=== PATIENT | female | born 1990 ===

== ENCOUNTER 2023-10-01 12:06 | Emergency (ER) | payer MEDICAID, OTHER, SELFPAY ==
--- NOTE | ~2023-10-01 | US_ITS ---
EXAMINATION: US PELVIS COMPLETE CLINICAL INFORMATION: Pelvic pain; the last menstrual period was on 08/12/2023. COMPARISON: None. TECHNIQUE: Transabdominal imaging was performed. FINDINGS: The uterus is of normal size and echogenicity measuring 9.1 x 4.5 x 5.7 cm. The uterus is anteverted and anteflexed. A regular, homogeneous endometrium is identified measuring 1.1 cm. Nabothian cysts are seen within the cervix FIBROIDS: There is 1 fibroid seen. 1. Location: Upper rightward body, myometrial. Size: 3.0 x 2.3 x 2.3 cm. Fibroid characteristics: Heterogeneous echotexture. Both ovaries are of normal size and echogenicity. The right ovary measures 3.4 x 2.3 x 3.4 cm for a volume of 13.9 mL. The right ovary contains a 1.3 x 1.7 x 1.3 cm mildly complex cyst, with internal reticulated contents characteristic for a hemorrhagic cyst. This requires no imaging follow-up. The left ovary measures 3.2 x 1.5 x 1.7 cm for a volume of 4.3 mL. There is no pelvic free fluid. No adnexal mass is seen. There is prominent left adnexal vasculature. US/US pelvic and transvaginal IMPRESSION: 1. A uterine fibroid is seen, as detailed. 2. A right ovarian hemorrhagic cyst is seen, for which no imaging follow-up is recommended. 3. Nabothian cysts are seen within the cervix. 4. There is prominent bilateral adnexal vasculature, which can be associated with pelvic congestion.
[2023-10-01 12:28] VITALS: BP 113/72; PULSE 69; RESP 16; TEMP 37.1; O2SAT 98; BMI 25.6
--- NOTE | 2023-10-01 12:31 | ED_ITS ---
HPI - Abdominal Pain General Chief Complaint: Abdominal Pain Stated Complaint: Stomach Pain Time Seen by Provider: 10/01/23 16:06 Source: patient and senior talent management consultant (Chilean) Mode of arrival: ambulatory Limitations: language barrier (Chilean) History of Present Illness ED Provider: CHANTELL LOPEZ HPI narrative: 33-year-old Chilean speaking female, , with no significant past medical history presents to the ED today for evaluation of suprapubic abdominal pain x5 months. Reports taking tylenol at home with minimal relief. She tells me she's been evaluated numerous times for same at [facility] with unremarkable work up. Does not have an client technical specialist to follow up with. Admits to starting her menstrual period today. LMP previous to this was 08/12/23 and does admit to irregular periods over the last few months. She tells me that she is actively trying to get . She is having intercourse with her significant other and not using protection. Is unsure of STD concern. Admits to negative home test one month ago. She has not on control. She does not have an OBGYN to follow up with. Denies fever, chils, flank pain, nausea, vomiting, diarrhea, constipation, vaginal bleeding, vaginal discharge. Per triage note, patient initially endorsing urinary symptoms. She tells me that she has not had dysuria, increased urinary frequency or urgency, bladder spasming, incontinence or hematuria. Related Data Previous Rx's ?Medication ?Instructions ?Recorded doxycycline monohydrate 100 mg 100 mg PO BID 7 days #13 caps 10/01/23 capsule metronidazole 500 mg tablet 500 mg PO BID 7 days #13 tabs 10/01/23 naproxen 500 mg tablet 500 mg PO Q8-12H PRN pain (scale 10/01/23 score 4-6) #20 tabs Allergies Allergy/AdvReac Type Severity Reaction Status Date / Time No Known Allergies Allergy Verified 10/01/23 12:37 Review of Systems Review of Systems Constitutional: No fever, chills, fatigue, night sweats, weight changes ENT/Mouth: No ear pain, hearing loss, nasal congestion, sinus pain, rhinorrhea, sore throat Eyes: No eye pain, swelling, redness, vision changes, discharge Cardio: No chest pain, palpitations, ROMERO, orthopnea, peripheral edema Pulm: No SOB, cough, sputum, wheezing, dyspnea, hemoptysis GI: No nausea, vomiting, hematemesis, diarrhea, constipation, hematochezia, melena, +suprapubic abdominal pain : No irregular bleeding, dysuria, frequency, urgency, hesitancy, hematuria, flank pain, urinary flow changes, urinary incontinence or retention MSK: No back pain, neck pain, joint pain, myalgias Skin: No lesions, rashes Neuro: No weakness, numbness, paresthesias, LOC, dizziness, headache Psych: No anxiety/panic, depression, SI/HI, AH/VH All other systems reviewed and are negative. [facility] Past Medical History Attestation statement: The following information was validated with the patient. Source: old records reviewed and nursing notes reviewed Social History Social History Alcohol intake: never Smoked in Last 30 Days: No Use of substances other than those prescribed or required for medical reasons: No Advance Directives: No Advance Directives Information Provided: No Patient : No Physical Exam ED Vital Signs: Vital Signs - 24 hr 10/01/23 12:28 10/01/23 16:41 10/01/23 19:21 Temperature 98.8 F 98.0 F 98.0 F Pulse Rate 69 58 62 Respiratory Rate 16 18 16 Blood Pressure 113/72 107/62 130/84 Pulse Oximetry 98 99 100 Oxygen Delivery Method Room Air Room Air Room Air 10/01/23 22:07 Temperature 98.2 F Pulse Rate 59 Respiratory Rate 16 Blood Pressure 117/66 Pulse Oximetry 98 Oxygen Delivery Method Room Air BMI result Body Mass Index 25.6 Vital signs stable Const General: cooperative, healthy appearing, comfortable and no acute distress Orientation/consciousness: patient oriented x3 Limitations: no limitations [facility] Head: Yes normal to inspection, Yes No palpable skull fracture present, Yes normocephalic and Yes atraumatic Eyes General: appearance normal, both eyes and all related structures Conjunctivae: conjunctivae normal Sclerae: sclerae normal Pupils: Equal, round and reactive pupils present Neck Neck: Yes normal visual inspection, Yes full ROM and Yes no lymphadenopathy Resp Effort & Inspection: normal respiratory effort and able to speak in complete sentences Auscultation: clear to auscultation bilaterally Cardio Rate: regular rate Rhythm: regular rhythm Other: Sensitive exam performed with ED ADENIKE David present in room to glass blowing instructor. External genitalia is normal in appearance without lesions, swelling, masses or tenderness. Vaginal canal is pink and moist with purulent discharge. No lesions. Cervix is non-tender without lesions or erosions. There is blood noted to cervical os consistent with current menstrual period. Uterus is anteflexed, non- tender and normal in size. Ovaries are non-tender without palpable masses or enlargement. No cervical motion tenderness on bimanual exam. Skin General skin exam: no rashes or lesions noted Neuro General: patient oriented x3 Cranial nerves: Yes Equal, round and reactive pupils present Course Course Course Narrative: This is an RME performed by Lul Sanchez CNP: Additional HPI, ROS, PE not included below will be deferred to primary provider. Patient is a 33 year old female who presents department for evaluation of mid abdominal pain with onset 5 months ago. Has pain progressively worsened, and has associated fever, dysuria, dizziness, headache, and ?a ball in my privates?. she denies associated chills, nausea, vomiting, diarrhea, constipation. She reports her LMP ended on 08/12/23, states that she took a test 1 month ago and it was negative. Plan: Labs, urinalysis, hCG Reevaluation(s) Reevaluation #1: 1825 -- CBC without leukocytosis or left shift. No anemia. H&H stable. Chemistry without acute electrolyte abnormality requiring intervention. transaminitis without prior to compare to. UA showing trace blood, moderate leukocyte esterase, 3-5 RBCs, 6-10 WBCs, trace bacteria, 3-5 squamous epithelial cells. Findings are consistent with current menstruation. She does not currently complain of urinary symptoms, will await urine culture to treat. She is agreeable with this. 2199-- pelvic exam concerning for STI. I did discuss treatment with patient. She would like to be treated prophylactically today prior to vaginal swab results. She was given a dose of ceftriaxone, doxy and Metro in the ED today. Will send doxy and Metro to pharmacy for treatment. Again, will defer UTI treatment until urine culture results return. pelvic/transvaginal ultrasound showing a single uterine fibroid, a right ovarian hemorrhagic cyst, nabothian cysts within the cervix along with prominent bilateral adnexal vasculature which may be associated with pelvic congestion. As patient's symptoms have been ongoing for 5 months, suspicion for pelvic congestion syndrome. No recommended follow-up for hemorrhagic cyst. She has not anemic. No concern for acute blood loss. Urine test negative. No concern for ectopic . I did discuss all findings with patient. I will be discharging her with referral to [facility] for follow up. Advised to take NSAIDs for pain/ discomfort. Patient has remained stable throughout ED visit today. Discussed worrisome signs and symptoms and when to return to the ED. All questions answered at this time. Patient is agreeable with disposition and stable for discharge. Medical Decision Making Medical Decision Making [facility] Narrative: 33-year-old Chilean speaking female with no significant past medical history presents to the ED today for evaluation of suprapubic abdominal pain x5 months. Vital signs stable. Afebrile. On exam, External genitalia is normal in appearance without lesions, swelling, masses or tenderness. Vaginal canal is pink and moist with purulent discharge. No lesions. Cervix is non-tender without lesions or erosions. There is blood noted to cervical os consistent with current menstrual period. Uterus is anteflexed, non-tender and normal in size. Ovaries are non-tender without palpable masses or enlargement. No cervical motion tenderness on bimanual exam. Abdomen is soft, nondistended, nontender to palpation, no rebound tenderness or guarding, normoactive bowel sounds x4. No CVAT bilaterally. Differential diagnosis includes urinary tract infection, sexually transmitted infection, IUP, ovarian cyst, dysmenorrhea. Lower suspicion for ectopic . Unlikely PID, ovarian cyst rupture, ovarian torsion, bladder or vaginal prolapse. Plan for labs, UA, pelvic/transvaginal ultrasound. Differential Diagnosis Differential Diagnoses: The differential diagnosis associated with the presentation includes As above Admission/Observation Not indicated Lab Data [facility] Lab Attestation statement: I reviewed the patient's lab results. As above 10/01/23 12:57 10/01/23 12:57 Labs: Lab Results 10/01/23 10/01/23 Range/Units 12:57 19:02 WBC 8.2 (4.8-10.8) X10*3/uL RBC 4.40 (4.20-5.50) X10*6/uL Hgb 12.8 (12.0-16.0) g/dl Hct 36.5 L (37.0-47.0) % MCV 83.0 (80.0-98.0) fL MCH 29.1 (27.0-33.0) pg MCHC 35.1 H (31.0-35.0) g/dl RDW 12.5 (11.0-16.0) % Plt Count 296 (160-400) X10*3/uL MPV 10.4 (9.4-12.3) fL Immature Gran % (Auto) 0.2 (0.0-0.4) % Neut % (Auto) 53.9 (45-73) % Lymph % (Auto) 35.3 (20-40) % [place] % (Auto) 6.9 (2-11) % Eos % (Auto) 3.6 (0-4) % Baso % (Auto) 0.1 (0-2) % Lymph # (Auto) 2.9 (1.2-4.9) X10*3/uL [place] # (Auto) 0.6 (0.1-1.2) X10*3/uL Eos # (Auto) 0.3 (0.0-0.4) X10*3/uL Baso # (Auto) 0.0 (0.0-0.2) X10*3/uL Abs Immat Gran (auto) 0.02 (0.00-0.03) X10*3/uL Absolute Neuts (auto) 4.4 (2.0-8.3) x10*3/uL Absolute Nucleated RBC 0.000 (0.0-0.012) X10*3/uL Nucleated RBC % (auto) 0.0 (0.0-0.2) /100WBC Sodium 137 (135-145) mmol/L Potassium 3.7 (3.3-5.1) mmol/L Chloride 106 (96-108) mmol/L Carbon Dioxide 24 (22-29) mmol/L Anion Gap 11 L (12-20) BUN 15 (9-16) mg/dL Creatinine 0.70 (0.5-1.4) mg/dL Estim Creat Clear Calc 89.8 Estimated GFR > 60 Random Glucose 99 (60-115) mg/dL Calcium 9.5 (8.4-10.2) mg/dL Total Bilirubin 0.2 (0.0-1.0) mg/dL AST 35 H (5-31) U/L ALT 61 H (0-31) U/L Alkaline Phosphatase 91 (39-117) U/L Total Protein 7.4 (6.5-8.0) g/dL Albumin 4.1 (3.5-5.0) g/dL Urine Color Yellow Urine Appearance Clear Urine pH 7.0 (5.0-9.0) Ur Specific [place] 1.010 (1.005-1.025) Urine Protein Negative (Neg-Trace) mg/dL Urine Glucose (UA) Negative (Negative) mg/dL Urine Ketones Negative (Negative) mg/dL Urine Blood Trace H (Negative) Urine Nitrite Negative (Negative) Ur Leukocyte Esterase Moderate (2+) H (Negative) Urine RBC 3-5 H (0-2) /HPF Urine WBC 6-10 H (0-5) /HPF Ur Squamous Epith Cells 3-5 (0-2) /HPF Urine Bacteria Trace (None Seen) Hyaline Casts 0-2 (0-2) /LPF Urine Test NEGATIVE (NEGATIVE) Chlam trachomat DNA PCR NOT DETECTED (Not Detect.) N.gonorrhoeae DNA (PCR) NOT DETECTED (Not Detect.) T. vaginalis (PCR) NOT DETECTED (Not Detect) Bact Vaginosis (PCR) NEGATIVE (Negative) C. krusei/glabrata (PCR) NOT DETECTED (Not Detect) Christa group (PCR) NOT DETECTED (Not Detect) Independent Interpretation I performed an independent interpretation of an: Ultrasound Interpretation: Pelvic/transvaginal ultrasound showing right ovarian cyst, agree with radiologist's interpretation. Radiology Impression Discussion of test interpretation with radiology: I have reviewed the radiologist's reading. Radiologist Impression: EXAMINATION: US PELVIS COMPLETE CLINICAL INFORMATION: Pelvic pain; the last menstrual period was on 08/12/2023. COMPARISON: None. TECHNIQUE: Transabdominal imaging was performed. FINDINGS: The uterus is of normal size and echogenicity measuring 9.1 x 4.5 x 5.7 cm. The uterus is anteverted and anteflexed. A regular, homogeneous endometrium is identified measuring 1.1 cm. Nabothian cysts are seen within the cervix FIBROIDS: There is 1 fibroid seen. 1. Location: Upper rightward body, myometrial. Size: 3.0 x 2.3 x 2.3 cm. Fibroid characteristics: Heterogeneous echotexture. Both ovaries are of normal size and echogenicity. The right ovary measures 3.4 x 2.3 x 3.4 cm for a volume of 13.9 mL. The right ovary contains a 1.3 x 1.7 x 1.3 cm mildly complex cyst, with internal reticulated contents characteristic for a hemorrhagic cyst. This requires no imaging follow-up. The left ovary measures 3.2 x 1.5 x 1.7 cm for a volume of 4.3 mL. There is no pelvic free fluid. No adnexal mass is seen. There is prominent left adnexal vasculature. US/US pelvic and transvaginal IMPRESSION: 1. A uterine fibroid is seen, as detailed. 2. A right ovarian hemorrhagic cyst is seen, for which no imaging follow-up is recommended. 3. Nabothian cysts are seen within the cervix. 4. There is prominent bilateral adnexal vasculature, which can be associated with pelvic congestion. Prescription Management I considered prescription management with: Pain Medication (naproxen) and Antibiotic (Doxycycline, metronidazole) Social Determinants Patient?s care significantly limited by Social Determinants of Health including: Other Social Determinant of Health Medications Administered Discontinued Medications Generic Name Dose Route Start Last Admin Trade Name Freq PRN Reason Stop Dose Admin Ceftriaxone Sodium 500 mg/ 0 mg 10/01/23 18:46 10/01/23 19:15 Lidocaine HCl 1 ml IM 10/01/23 18:47 350 kit ONCE ONE Administration Doxycycline Monohydrate 100 mg 10/01/23 18:46 10/01/23 19:14 Doxycycline Monohydrate 100 Mg Capsule PO 10/01/23 18:47 100 mg ONCE ONE Administration Ketorolac Tromethamine 30 mg 10/01/23 18:16 10/01/23 18:36 Ketorolac Tromethamine 30 Mg/Ml Vial IM 10/01/23 18:17 30 mg ONCE ONE Administration Metronidazole 500 mg 10/01/23 18:46 10/01/23 19:14 Metronidazole 500 Mg Tablet PO 10/01/23 18:47 500 mg ONCE ONE Administration Critical Care Time Critical Care Time Critical Care Time: No Discharge Plan Discharge Clinical Impression: Female pelvic congestion syndrome, Hemorrhagic cyst of right ovary, Uterine fibroid, Nabothian cyst Patient Disposition: Home, Self-Care Instructions: Ovarian Cyst (ED) Additional Instructions: Your labs today are reassuring. Your urine shows blood consistent with your current menstrual period. The ultrasound of your pelvis shows: US pelvic and transvaginal IMPRESSION: 1. A uterine fibroid is seen, as detailed. 2. A right ovarian hemorrhagic cyst is seen, for which no imaging follow-up is recommended. 3. Nabothian cysts are seen within the cervix. 4. There is prominent bilateral adnexal vasculature, which can be associated with pelvic congestion. As discussed, your pain is consistent with pelvic congestion syndrome. Please follow up with pile driving setter regarding these findings. You have been given a referral. Call them Wednesday morning to schedule an appointment. Additionally, swabs were sent to check for sexually transmitted infections and you will be called in a few days with any positive results. After discussion, you opted to be treated prophylactially. You were given a dose of ceftriaxone in the ED. Metronidazole as an antibiotic that has been sent to your pharmacy. Take this as prescribed. Doxycycline is antibiotic that has been sent to your pharmacy. Take this as prescribed. Return with new or worsening symptoms. In the case of an emergency call 911. Prescriptions: New naproxen 500 mg tablet 500 mg PO Q8-12H PRN (Reason: pain (scale score 4-6)) Qty: 20 0RF doxycycline monohydrate 100 mg capsule 100 mg PO BID 7 Days Qty: 13 0RF metronidazole 500 mg tablet 500 mg PO BID 7 Days Qty: 13 0RF Referrals: Jaya Watts MD [Physician] - Interventions: ED Discharge Assessment Last Done: 10/01/23 22:07 Discharge Date/Time: 10/01/23 22:10 Print Language: Chilean
--- NOTE | 2023-10-01 12:41 | ECG_ITS ---
Test Reason : DIZZINESS Blood Pressure : / mmHG Vent. Rate : 059 BPM Atrial Rate : 059 BPM P-R Int : 130 ms QRS Dur : 076 ms QT Int : 434 ms P-R-T Axes : 065 003 024 degrees QTc Int : 429 ms Sinus bradycardia Otherwise normal ECG No previous ECGs available Referred By: Genna Sanchez Electronically Signed By:JOSIAS SANCHEZ
[2023-10-01 13:07] LABS: MANUAL DIFF FLAG NO
[2023-10-01 13:08] LABS: Basophils Percent Auto 0.1 % (0-2); Eosinophils Absolute Auto 0.3 X10*3/uL (0.0-0.4); Eosinophils Percent Auto 3.6 % (0-4); Hematocrit 36.5 % (37.0-47.0); Hemoglobin 12.8 g/dl (12.0-16.0); Imm Gran Abs Auto 0.02 X10*3/uL (0.00-0.03); Imm Gran Pct Auto 0.2 % (0.0-0.4); Lymphocytes Absolute Auto 2.9 X10*3/uL (1.2-4.9); Lymphocytes Percent Auto 35.3 % (20-40); Mean Corpuscular HGB Conc 35.1 g/dl (31.0-35.0); Mean Corpuscular Hemoglobin 29.1 pg (27.0-33.0); Mean Platelet Volume 10.4 fL (9.4-12.3); Monocytes Absolute Auto 0.6 X10*3/uL (0.1-1.2); Monocytes Percent Auto 6.9 % (2-11); Neutrophils Absolute Auto 4.4 x10*3/uL (2.0-8.3); Neutrophils Percent Auto 53.9 % (45-73); Platelet Count 296 X10*3/uL (160-400); Red Cell Distribution Width 12.5 % (11.0-16.0); White Blood Count 8.2 X10*3/uL (4.8-10.8)
[2023-10-01 13:18] LABS: Appearance Urine Clear; Color Urine Yellow; Glucose Urine UA Negative (Negative); Leukocyte Esterase Urine Moderate (2+) (Negative); Nitrite Urine Negative (Negative); UMIC TRIGGER UACC YES; Urine Blood Trace (Negative); Urine Ketones Negative (Negative); Urine Protein Negative (Neg-Trace)
[2023-10-01 13:19] LABS: UPreg QC Valid YES; Urine Pregnancy NEGATIVE (NEGATIVE)
[2023-10-01 13:23] LABS: Bacteria Urine Trace (None Seen); Hyaline Casts Urine 0-2 /LPF (0-2); UACC Culture Trigger YES
[2023-10-01 13:29] LABS: Alanine Aminotransferase 61 U/L (0-31); Albumin Level 4.1 g/dL (3.5-5.0); Alkaline Phosphatase 91 U/L (39-117); Anion Gap 11 (12-20); Aspartate Amino Transferase 35 U/L (5-31); Bilirubin Total 0.2 mg/dL (0.0-1.0); Blood Urea Nitrogen 15 mg/dL (9-16); Calcium 9.5 mg/dL (8.4-10.2); Carbon Dioxide 24 mmol/L (22-29); Chloride 106 mmol/L (96-108); Creatinine Clr Calc Pharmacy 89.8; Estimated Glomerular Filt Rate > 60; Glucose Random 99 mg/dL (60-115); Potassium 3.7 mmol/L (3.3-5.1); Sodium 137 mmol/L (135-145); Total Protein 7.4 g/dL (6.5-8.0)
--- OUTSIDE RECORDS SUMMARY | 2023-10-01 16:21 | XMS_ITS | Continuity of Care Document ---
Author Organization [facility] Address [address] [place] [address]- Care Team Providers Care Tax Commissioner Name Role Phone Not on Staff, PCP Primary Care Physician Unavail able Encounter [facility] [place] [facility] Date(s): 12/29/22 - 01/28/23 [facility]/[place] [address]- [place] Allergies, Adverse Reactions, Alerts No Known Allergies Medications albendazole 200 mg oral tablet 2 tablet = 400 mg, By Mouth, Once, # 2 tablet, 0 Refills, Soft Stop, 09/02/22 11:57:00 EDT, Tablet,[facility], Partial fill upon patient request if the prescription is for a schedule II opioid drug., 53.09, kg, 09/02/22 11:26:00 E... Start Date: 09/02/22 Status: Ordered cetirizine 10 mg oral tablet 1 tablet = 10 mg, By Mouth, Daily, PRN for allergy symptoms, # 30 tablet, 1 Refills, Maintenance, 09/02/22 11:59:00 EDT, Tablet, [facility], Partial fill upon patient request if the prescription is for a schedule II opioid drug., 5... Start Date: 09/02/22 Stop Date: 11/01/22 Status: Ordered ivermectin 3 mg oral tablet 4 tablet = 12 mg, By Mouth, Daily, # 8 tablet, 0 Refills, Maintenance, 09/02/22 11:57:00 EDT, [facility], Partial fill upon patient request if the prescription is for a schedule II opioid drug., 53.09, kg, 09/02/22 11:26:00 EDTDr... Start Date: 09/02/22 Stop Date: 09/04/22 Status: Ordered Lubricant Eye Drops ophthalmic solution 1 drops, Eyes, Both, 2 times a day, PRN for dry eyes, cape verdean, # 30 mL, 11 Refills, Maintenance, 12/01/22 19:04:00 EDT, Solution, [facility], Partial fill upon patient request if the prescription is for a schedule II opioid drug.,... Start Date: 12/01/22 Status: Ordered omeprazole 20 mg oral enteric coated capsule 1 capsule = 20 mg, By Mouth, 2 times a day, # 28 capsule, 0 Refills, Maintenance, 09/15/22 15:19:00EDT, EC Capsule, [facility], Partial fill upon patient request if the prescription is for a schedule II opioid drug., 53.09, kg, 05... Start Date: 09/15/22 Stop Date: 09/29/22 Status: Ordered wrist splint for carpal tunnel wrist splint for carpal tunnel, See Instructions, # 1 each, Refills 0, Tot. Refills 0, Maintenance,dx: carpal tunnel right G56. 01 YOSSI 12 months, 12/01/22 19:04:00 EDT, Supply Start Date: 12/01/22 Status: Ordered Xulane 150 mcg-35 mcg/24 hr transdermal film, extended release See Instructions, apply a new patch weekly for 3 weeks, remove for 1 week, then repeat cycle, # 9 patch, 3 Refills, Maintenance, 12/01/22 19:02:00 EDT, [facility], Partial fill upon patient request if the prescription is for a sche... Start Date: 12/01/22 Status: Ordered Social History Social History Type Response Sex Female Patient Care team information Care Team Personnel Name: Not on Staff, PCP Position: S Physician (General Medicine) Member Role: PCP Care Team Related Persons Name: NANY DUQUE
--- OUTSIDE RECORDS SUMMARY | 2023-10-01 16:21 | XMS_ITS | Continuity of Care Document ---
Author Organization [facility] Address [address] [place] [id number]- Care Team Providers Care Package Pick Up Name Role Phone Wilberto CARUSO, Tracey Freeman Primary Care Physici an [id number] Date[facility]s): 07/05/23 - 08/04/23 [facility]/[address] [address]- Allergies, Adverse Reactions, Alerts No Known Allergies Medications cetirizine 10 mg oral tablet 1 tablet = 10 mg, By Mouth, Daily, PRN for allergy symptoms, # 30 tablet, 1 Refills, Maintenance, 09/02/22 11:59:00 EDT, Tablet, [facility], Partial fill upon patient request if the prescription is for a schedule II opioid drug., 5... Start Date: 09/02/22 Stop Date: 11/01/22 Status: Ordered Lubricant Eye Drops ophthalmic solution 1 drops, Eyes, Both, 2 times a day, PRN for dry eyes, marshallese, # 30 mL, 11 Refills, Maintenance, 12/01/22 19:04:00 EDT, Solution, [facility], Partial fill upon patient request if the prescription is for a schedule II opioid drug.,... Start Date: 12/01/22 Status: Ordered Multivitamins with Folic Acid 0.4 mg oral tablet 1 tablet, By Mouth, Daily, # 90 tablet, 3 Refills, Maintenance, 08/03/23 10:01:00 EDT, [facility], Partial fill upon patient request if the prescription is for a schedule II opioid drug., 1 tablet By Mouth Daily, 145.2, cm, 2... Start Date: 08/03/23 Status: Ordered Xulane 150 mcg-35 mcg/24 hr transdermal film, extended release See Instructions, apply a new patch weekly for 3 weeks, remove for 1 week, then repeat cycle, # 9 patch, 3 Refills, Maintenance, 12/01/22 19:02:00 EDT, [facility] [place], Partial fill upon patient request if the prescription is for a sche... Start Date: 12/01/22 Status: Ordered Social History Social History Type Response Smoking Status Never (less than 100 in lifetime) entered on: 03/17/23 Sex Female Patient Care team information Care Team Personnel Name: Wilberto CARUSO, Tracey Freeman Position: [facility] PC[facility] Associate Professional Member Role: PCP Address: Address: [address] [place] [address]- Care Team Related Persons Name: NANY DUQUE
--- OUTSIDE RECORDS SUMMARY | 2023-10-01 16:21 | XMS_ITS | Continuity of Care Document ---
Author Organization [facility] Address [address] [place] [id number]- Care Team Providers Care Computer Clerk Name Role Phone Wilberto CARUSO, Tracey Freeman Primary Care Physici an [id number] Date[facility]s): 06/17/23 - 07/17/23 [facility]/[address] [address]- Allergies, Adverse Reactions, Alerts No Known Allergies Medications cetirizine 10 mg oral tablet 1 tablet = 10 mg, By Mouth, Daily, PRN for allergy symptoms, # 30 tablet, 1 Refills, Maintenance, 09/02/22 11:59:00 EDT, Tablet, [facility], Partial fill upon patient request if the prescription is for a schedule II opioid drug., 5... Start Date: 09/02/22 Stop Date: 11/01/22 Status: Ordered Lubricant Eye Drops ophthalmic solution 1 drops, Eyes, Both, 2 times a day, PRN for dry eyes, macedonian, # 30 mL, 11 Refills, Maintenance, 12/01/22 19:04:00 EDT, Solution, [facility], Partial fill upon patient request if the prescription is for a schedule II opioid drug.,... Start Date: 12/01/22 Status: Ordered Xulane 150 mcg-35 mcg/24 hr transdermal film, extended release See Instructions, apply a new patch weekly for 3 weeks, remove for 1 week, then repeat cycle, # 9 patch, 3 Refills, Maintenance, 12/01/22 19:02:00 EDT, [facility], Partial fill upon patient request if the prescription is for a sche... Start Date: 12/01/22 Status: Ordered Social History Social History Type Response Smoking Status Never (less than 100 in lifetime) entered on: 03/17/23 Sex Female Patient Care team information Care Team Personnel Name: Wilberto CARUSO, Tracey Freeman Position: [facility] PCO Associate Professional Member Role: PCP Address: Address: [address] [place] [address] Care Team Related Persons Name: NANY DUQUE
--- OUTSIDE RECORDS SUMMARY | 2023-10-01 16:21 | XMS_ITS | Continuity of Care Document ---
Author Organization [facility] Address [address] [place] [address]- Care Team Providers Care Manager Employment Name Role Phone Wilberto CARUSO, Tracey Freeman Primary Care Physici an Encounter [facility] [id number] Date(s): 06/30/23 - 07/30/23 [facility]/[address] [address]- Allergies, Adverse Reactions, Alerts No Known Allergies Medications cetirizine 10 mg oral tablet 1 tablet = 10 mg, By Mouth, Daily, PRN for allergy symptoms, # 30 tablet, 1 Refills, Maintenance, 09/02/22 11:59:00 EDT, Tablet, [facility], Partial fill upon patient request if the prescription is for a schedule II opioid drug., 5... Start Date: 09/02/22 Stop Date: 11/01/22 Status: Ordered Lubricant Eye Drops ophthalmic solution 1 drops, Eyes, Both, 2 times a day, PRN for dry eyes, estonian, # 30 mL, 11 Refills, Maintenance, 12/01/22 19:04:00 EDT, Solution, [facility], Partial fill upon patient request if the prescription is for a schedule II opioid drug.,... Start Date: 12/01/22 Status: Ordered Xulane 150 mcg-35 mcg/24 hr transdermal film, extended release See Instructions, apply a new patch weekly for 3 weeks, remove for 1 week, then repeat cycle, # 9 patch, 3 Refills, Maintenance, 12/01/22 19:02:00 EDT, [facility], Partial fill upon patient request if the prescription is for a sche... Start Date: 12/01/22 Status: Ordered Social History Social History Type Response Smoking Status Never (less than 100 in lifetime) entered on: 03/17/23 Sex Female Patient Care team information Care Team Personnel Name: Wilberto CARUSO, Tracey Freeman Position: [facility] PCO Associate Professional Member Role: PCP Address: Address: [address] [place] [address] Care Team Related Persons Name: NANY DUQUE
--- OUTSIDE RECORDS SUMMARY | 2023-10-01 16:21 | XMS_ITS | Continuity of Care Document ---
Author Organization [facility] Address [address] [place] [address]- Care Team Providers Care Director Of Psychiatry Name Role Phone Not on Staff, PCP Primary Care Physician Unavail able Encounter [facility] Date(s): 03/26/23 - 04/25/23 [facility] [address]- Allergies, Adverse Reactions, Alerts No Known Allergies Medications albendazole 200 mg oral tablet 2 tablet = 400 mg, By Mouth, Once, # 2 tablet, 0 Refills, Soft Stop, 09/02/22 11:57:00 EDT, Tablet,[facility], Partial fill upon patient request if the prescription is for a schedule II opioid drug., 53.09, kg, 09/02/22 11:26:00 E... Start Date: 09/02/22 Status: Ordered cetirizine 10 mg oral tablet 1 tablet = 10 mg, By Mouth, Daily, PRN for allergy symptoms, # 30 tablet, 1 Refills, Maintenance, 09/02/22 11:59:00 EDT, Tablet, [facility], Partial fill upon patient request if the prescription is for a schedule II opioid drug., 5... Start Date: 09/02/22 Stop Date: 11/01/22 Status: Ordered ivermectin 3 mg oral tablet 4 tablet = 12 mg, By Mouth, Daily, # 8 tablet, 0 Refills, Maintenance, 09/02/22 11:57:00 EDT, [facility], Partial fill upon patient request if the prescription is for a schedule II opioid drug., 53.09, kg, 09/02/22 11:26:00 EDTDr... Start Date: 09/02/22 Stop Date: 09/04/22 Status: Ordered Lubricant Eye Drops ophthalmic solution 1 drops, Eyes, Both, 2 times a day, PRN for dry eyes, bhutanese, # 30 mL, 11 Refills, Maintenance, 12/01/22 19:04:00 EDT, Solution, [facility], Partial fill upon patient request if the prescription is for a schedule II opioid drug.,... Start Date: 12/01/22 Status: Ordered omeprazole 20 mg oral enteric coated capsule 1 capsule = 20 mg, By Mouth, 2 times a day, # 28 capsule, 0 Refills, Maintenance, 09/15/22 15:19:00EDT, EC Capsule, [facility], Partial fill upon patient request if [...] patch, 3 Refills, Maintenance, 12/01/22 19:02:00 EDT, [facility], Partial fill upon patient request if [...]
--- OUTSIDE RECORDS SUMMARY | 2023-10-01 16:21 | XMS_ITS | Continuity of Care Document ---
Author Organization [facility] Address [address] [place] [address]- Care Team Providers Care Cigar Packer And Picker Name Role Phone Wilberto CARUSO, Tracey Freeman Primary Care Physici an [place] [facility] [place] 09/01/23 - 09/01/[address] [address]- Discharge Disposition: A-D/C Home Attending Physician: Luis Miguel Dia MD Admitting Physician: Luis Miguel Dia MD Referring Physician: Not on Staff, Referring MD Allergies, Adverse Reactions, Alerts No Known Allergies Medications cetirizine 10 mg oral tablet 1 tablet = 10 mg, By Mouth, Daily, PRN for allergy symptoms, # 30 tablet, 1 Refills, Maintenance, 09/02/22 11:59:00 EDT, Tablet, [facility], Partial fill upon patient request if the prescription is for a schedule II opioid drug., 5... Start Date: 09/02/22 Stop Date: 11/01/22 Status: Ordered Lubricant Eye Drops ophthalmic solution 1 drops, Eyes, Both, 2 times a day, PRN for dry eyes, persian, # 30 mL, 11 Refills, Maintenance, 12/01/22 19:04:00 EDT, Solution, [facility], Partial fill upon patient request if the prescription is for a schedule II opioid drug.,... Start Date: 12/01/22 Status: Ordered Multivitamins with Folic Acid 0.4 mg oral tablet 1 tablet, By Mouth, Daily, # 90 tablet, 3 Refills, Maintenance, 08/03/23 10:01:00 EDT, [facility], Partial fill upon patient request if [...] patch, 3 Refills, Maintenance, 12/01/22 19:02:00 EDT, [facility], Partial fill upon patient request if the prescription is for a sche... Start Date: 12/01/22 Status: Ordered Results Orders for Microbiology Reports Name Date Wet Prep (WET PREP) 09/01/23 Microbiology Reports TEST:Wet Prep STATUS:Auth (Verified) BODY SITE: SOURCE:VAGINA COLLECTED DATE/TIME:09/01/23 10:44 AM Wet Prep SPECIMEN DESCRIPTION : VAGINAL SPECIMEN SWAB SPECIAL REQUESTS : NONE DIRECT EXAM : 4+ WHITE BLOOD CELLS NO TRICHOMONAS,YEAST,OR CLUE CELLS OBSERVED REPORT STATUS : FINAL 09/01/2023 Radiology Reports * Exam Date Time Procedure Performing Provider Status 09/01/23 12:20 PM US Pelvic Doppler Comp Noemi Jones; Auth (Verified) Notes: (US Pelvic Doppler Comp) Reason For Exam: Pelvic Pain;Other: RESULT: US Pelvic Doppler Comp US Pelvic Transabdominal, US Pelvic Transvaginal, US Pelvic Doppler Comp Hx of Present Illness: pt c o lower abd pain x 3 months. was evaled at clinic, meds rx relieved symptoms, pain returned yesterday. denies any associated symptoms including dysuria, changes in urine, vag dc, fevers, n v, constipation. also c o lower back pain; Reason: Other:; Pelvic Pain; Clinical Question(s): TOA; Order Comment: US Pelvic Non-Ob Comp Prep COMPARISON: 07/05/2023. TECHNIQUE: Transabdominal and transvaginal pelvic ultrasound with grayscale, color Doppler, and spectral Doppler analysis. FINDINGS: UTERUS: Size: 8.6 x 4.1 x 4.9 cm, volume 89.7 cc. Endometrial thickness: 0.4 cm. Morphology: Normal configuration and echotexture. RIGHT OVARY: Size: 4.2 x 2.1 x 2.2 cm, volume 10.1 cc. Morphology: Normal echotexture. Multiple small peripheral follicles. No pathologic cysts or mass. Normal arterial and venous waveforms. LEFT OVARY: Size: 3.7 x 2.3 x 2.7 cm, volume 12.2 cc. Morphology: Normal echotexture. Multiple small peripheral follicles. No pathologic cysts or mass. Normal arterial and venous waveforms. ADNEXA: Normal. No adnexal masses or fluid collections. Mild prominence of left adnexal vasculature. IMPRESSION: No evidence of abscess, torsion, or other acute abnormality of the pelvis. WSN: [id number] Ordering Physician: Gayatri Culp Dictated By: Natalia Flores MD Dictated Date/Time: 09/01/23 12:45 p Reviewed By: Natalia Flores MD Signed By: Natalia Flores MD Signed Date/Time: 09/01/23 12:45 pm Transcribed By: ENA Transcribed Date/Time: 09/01/23 12:37 pm * Exam Date Time Procedure Performing Provider Status 09/01/23 12:20 PM US Pelvic Transvaginal Noemi Jones ee; Auth (Verified) Notes: (US Pelvic Transvaginal) Reason For Exam: Pelvic Pain;Other: RESULT: US Pelvic Transvaginal US Pelvic Transabdominal, US Pelvic Transvaginal, US Pelvic Doppler Comp Hx of Present Illness: pt c o lower abd pain x 3 months. was evaled at clinic, meds rx relieved symptoms, pain returned yesterday. denies any associated symptoms including dysuria, changes in urine, vag dc, fevers, n v, constipation. also c o lower back pain; Reason: Other:; Pelvic Pain; Clinical Question(s): TOA; Order Comment: US Pelvic Non-Ob Comp Prep COMPARISON: 07/05/2023. TECHNIQUE: Transabdominal and transvaginal pelvic ultrasound with grayscale, color Doppler, and spectral Doppler analysis. FINDINGS: UTERUS: Size: 8.6 x 4.1 x 4.9 cm, volume 89.7 cc. Endometrial thickness: 0.4 cm. Morphology: Normal configuration and echotexture. RIGHT OVARY: Size: 4.2 x 2.1 x 2.2 cm, volume 10.1 cc. Morphology: Normal echotexture. Multiple small peripheral follicles. No pathologic cysts or mass. Normal arterial and venous waveforms. LEFT OVARY: Size: 3.7 x 2.3 x 2.7 cm, volume 12.2 cc. Morphology: Normal echotexture. Multiple small peripheral follicles. No pathologic cysts or mass. Normal arterial and venous waveforms. ADNEXA: Normal. No adnexal masses or fluid collections. Mild prominence of left adnexal vasculature. IMPRESSION: No evidence of abscess, torsion, or other acute abnormality of the pelvis. WSN: [id number] Ordering Physician: Gayatri Culp Dictated By: Natalia Flores MD Dictated Date/Time: 09/01/23 12:45 p Reviewed By: Natalia Flores MD Signed By: Natalia Flores MD Signed Date/Time: 09/01/23 12:45 pm Transcribed By: ENA Transcribed Date/Time: 09/01/23 12:37 pm * Exam Date Time Procedure Performing Provider Status 09/01/23 12:20 PM US Pelvic Transabdominal Kia Jones; Auth (Verified) Notes: (US Pelvic Transabdominal) Reason For Exam: Pelvic Pain;Other: RESULT: US Pelvic Transabdominal US Pelvic Transabdominal, US Pelvic Transvaginal, US Pelvic Doppler Comp Hx of Present Illness: pt c o lower abd pain x 3 months. was evaled at clinic, meds rx relieved symptoms, pain returned yesterday. denies any associated symptoms including dysuria, changes in urine, vag dc, fevers, n v, constipation. also c o lower back pain; Reason: Other:; Pelvic Pain; Clinical Question(s): TOA; Order Comment: US Pelvic Non-Ob Comp Prep COMPARISON: 07/05/2023. TECHNIQUE: Transabdominal and transvaginal pelvic ultrasound with grayscale, color Doppler, and spectral Doppler analysis. FINDINGS: UTERUS: Size: 8.6 x 4.1 x 4.9 cm, volume 89.7 cc. Endometrial thickness: 0.4 cm. Morphology: Normal configuration and echotexture. RIGHT OVARY: Size: 4.2 x 2.1 x 2.2 cm, volume 10.1 cc. Morphology: Normal echotexture. Multiple small peripheral follicles. No pathologic cysts or mass. Normal arterial and venous waveforms. LEFT OVARY: Size: 3.7 x 2.3 x 2.7 cm, volume 12.2 cc. Morphology: Normal echotexture. Multiple small peripheral follicles. No pathologic cysts or mass. Normal arterial and venous waveforms. ADNEXA: Normal. No adnexal masses or fluid collections. Mild prominence of left adnexal vasculature. IMPRESSION: No evidence of abscess, torsion, or other acute abnormality of the pelvis. WSN: [id number] Ordering Physician: Gayatri Culp Dictated By: Natalia Flores MD Dictated Date/Time: 09/01/23 12:45 p Reviewed By: Natalia Flores MD Signed By: Natalia Flores MD Signed Date/Time: 09/01/23 12:45 pm Transcribed By: ENA Transcribed Date/Time: 09/01/23 12:37 pm * Exam Date Time Procedure Performing Provider Status 09/01/23 11:[address] Abd/Pelvis W/ IV Contrast Only Leona Brenner; Auth (Verified) Notes: (CT Abd/Pelvis W/ IV Contrast Only) Reason For Exam: lower abd pain;Other: RESULT: CT Abd/Pelvis W/ IV Contrast Only CT Abd/Pelvis W/ IV Contrast Only Hx of Present Illness: pt c o lower abd pain x 3 months. Was evaluated at clinic, meds rx relieved symptoms, pain returned yesterday. Denies any associated symptoms including dysuria, changes in urine, vag dc, fevers, n v, constipation. Also c o lower back pain; Reason: Other:; lower abd pain; Clinical Question(s): Other:; infection; Order Comment: TECHNIQUE: Spiral CT through the abdomen and pelvis with IV contrast formatted in 3 planes. 100 cc of Omnipaque 300 was administered intravenously. This study was performed without oral contrast. Weight-based protocol using automatic tube modulation was used to optimize exposure parameters. CTDIvol Body: 6.56 mGy, DLP Body: 333 mGy*cm. COMPARISON: No pertinent prior study available for comparison.. FINDINGS: Title Agent View Findings, Lines and Tubes: None. Visualized Chest: Lung bases are clear. No pleural effusion. The heart is normal in size. No pericardial effusion. Diaphragm: Normal. Liver: Diffuse low attenuation of the hepatic parenchyma compatible steatosis. Ill-defined area of high attenuation in the left hepatic lobe abutting the malena hepatis measuring 1.6 x 1.5 cm (41/601). Gallbladder: No CT evidence of gallbladder pathology. Bile ducts: No biliary ductal dilation. Spleen: Normal. Accessory splenic tissue is incidentally noted. Pancreas: Normal. Adrenal glands: Normal. Kidneys and ureters: No hydronephrosis, stones, or suspicious masses. Bladder: Normal. Reproductive organs: Unremarkable. Stomach, small bowel, and large bowel: Stomach, small bowel and large bowel are normal in caliber. No evidence of bowel obstruction. No acute inflammatory process of the bowel. Appendix: Normal. Peritoneum and retroperitoneum: No ascites or pneumoperitoneum. No omental or mesenteric lesions. Lymph nodes: No enlarged lymph nodes. Blood vessels: Normal. No aneurysm. No evidence of venous thrombosis. Abdominal and pelvic wall: Unremarkable. Bones: No acute abnormality. IMPRESSION: 1. No acute process in the abdomen or pelvis. 2. Hepatic steatosis 3. Focal area of high attenuation/enhancement in the left hepatic lobe abutting the malena hepatis measuring up to 1.6 cm most likely represents an area of focal fat sparing. Differential considerations could include an adenoma or FNH. This could be correlated with ultrasound or follow-up nonemergent MRI abdomen with and without contrast WSN: [id number] Ordering Physician: Gayatri Culp Dictated By: Boris Salazar MD Dictated Date/Time: 09/01/23 12:09 p Reviewed By: Boris Salazar MD Signed By: Boris Salazar MD Signed Date/Time: 09/01/23 12:09 pm Transcribed By: ENA Transcribed Date/Time: 09/01/23 11:53 am Vital Signs Most recent to oldest [Reference Range]: 1 2 3 Height 146 cm (09/01/23 2:32 PM) 146 cm (09/01/23 9:46 AM) 146 cm (09/01/23 9:27 AM) Weight 59 kg (09/01/23 9:46 AM) 59 kg (09/01/23 9:27 AM) Oxygen Saturation [94-100 %] 100 % (09/01/23 2:32 PM) 100 % (09/01/23 9:27 AM) Pulse Rate [55-90 bpm] 54 bpm *L* (09/01/23 2:32 PM) 57 bpm (09/01/23 9:27 AM) Body Mass Index [18.5-24.99 kg/m2] 27.68 kg/m2 *H* (09/01/23 9:27 AM) Blood Pressure [90-138/55-84 mm Hg] 109/69mm Hg (09/01/23 2:32 PM) 134/86mm Hg (09/01/23 9:27 AM) Respiratory Rate [16-30 br/min] 16 br/min (09/01/23 2:32 PM) 18 br/min (09/01/23 9:27 AM) Temperature [96.8-100.4 DegF] 98.4 DegF (09/01/23 2:32 PM) 98.4 DegF (09/01/23 9:27 AM) Mode of Delivery (Oxygen) Room air (09/01/23 2:32 PM) Room air (09/01/23 9:27 AM) Blood pressure sites Arm, left (09/01/23 2:32 PM) Arm, right (09/01/23 9:27 AM) Temperature Route Oral (09/01/23 2:32 PM) Oral (09/01/23 9:27 AM) Dry Weight 59 kg (09/01/23 9:46 AM) 59 kg (09/01/23 9:27 AM) Weight Obtained Via Patient/family state d (09/01/23 9:27 AM) Dry Weight Obtained Via Patient/family s tated (09/01/23 9:27 AM) Social History Social History Type Response Smoking Status Never (less than 100 in lifetime) entered on: 03/17/23 Sex Female Note * Gayatri Nunez M: PERFORM Event Display: Patient Education Leaflets Authored Date: [id number] Abdominal Pain, Unknown Cause (Adult) ?? [id number] Causas desconocidas del dolor abdominal en adultos Se desconoce la causa exacta del dolor en el vientre (abdomen). Por el momento, las pruebas y los ex??menes no indican bonny causa grave. Ramiro eso no significa que no haya que preocuparse. Todas las personas quieren conocer la causa exacta del problema. Ramiro a veces no hay bonny causa nancy del dolor abdominal, y esto podr??a ser algo burks. Podr??a sentirse mejor al tratar los s??ntomas.?? Por el momento, brock afecci??n no parece ser grave. Sin embargo, a veces los signos de un problema grave pueden tardar m??s en aparecer. Por lo tanto, es importante que vigile cualquier s??ntoma nuevo,dificultad o empeoramiento de brock afecci??n. En los d??as siguientes, el dolor abdominal puede aparecer y desaparecer. O puede ser clau. Las n??useas y los v??mitos son otros s??ntomas habituales. A veces, puede ser dif??cil reconocer que tiene n??useas. Podr??a sentirse mal y no relacionarlo con bonny sensaci??n de n??useas. El dolor podr??a estar acompa??ado de estre??imiento, diarrea y fiebre. El dolor puede continuar ankita varios d??as, incluso cuando se trata correctamente. Seg??n la evoluci??n del cuadro, a veces la causa puede determinarse y puede requerir m??s o diferentes tratamientos. Tambi??n puede necesitar otras evaluaciones, medicamentos o pruebas. Cuidados en el hogar Brock proveedor de atenci??n m??dica puede recetarle medicamentos para el dolor, los s??ntomas o bonny infecci??n. ??Siga las instrucciones del proveedor de atenci??n m??dica para avtar estos medicamentos. Cuidados generales ??? Descanse todo lo que pueda hasta el pr??ximo control. No tanya actividades que requieran mucho esfuerzo. ??? Evite todo lo que pueda causar los s??ntomas. [place] puede incluir no avtar medicamentos,a menos que se lo haya indicado brock proveedor de atenci??n m??dica. O no comer determinados alimentos ni hacer determinadas actividades. ??? Trate de encontrar posiciones que alivien el malestar. Bonny almohada jose angel??a colocada sobre el abdomen puede aliviar el dolor. ??? El calor de, por ejemplo, bonny almohadilla t??rmica en el abdomen puede ayudar, ramiro tenga cuidado de no quemarse. Alimentaci??n ??? No se obligue a comer, especialmente si tiene c??licos, v??mitos o diarrea. ??? Es importante que tome agua para no deshidratarse. Tambi??n puede ser burks beber sopas. Las bebidas deportivas tambi??n pueden ayudar, en especial si no son muy ??cidas. No tome bebidas con az??car yaque podr??a hacer que empeore. Neha cantidades jose angel??as de l??quidos. No neha r??pido. ??? El consumo de cafe??na a veces puede empeorar el dolor y los c??licos. ??? No ingiera productos l??cteos sitiene v??mitos o diarrea. ??? No ingiera bonny gran cantidad de comida de bonny miguel vez. Coma varias porciones jose angel??as a lo kindra del d??a, en vez de 2??o 3??comidas grandes diarias. Espere unos minutos entre bocados. ??? Coma alimentos con poca fibra (esto se llama dieta baja en residuos). Los alimentos permitidos incluyen panes con harina refinada, arroz whitehead, jugos de frutas y verduras sin pulpa y maxine de res tiernas. Estos alimentos pasan con mayor facilidad por el intestino. ??? Evite los alimentos de granos integrales, las frutas y verduras enteras, las maxine de res, las semillas y los thuy secos, los alimentos fritos o grasosos, los productos l??cteos, el alcohol y los alimentos picantes hasta que los s??ntomas desaparezcan. ?? Seguimiento Tanya el seguimiento con brock proveedor de atenci??n m??dica o seg??n las indicaciones si el dolor no comienza a mejorar en las pr??ximas 24??horas. ?? Cu??ndo llamar al?? 911 Llame al?? 911 si ocurre algo de lo siguiente: ??? Dificultad para respirar ??? Confusi??n ??? Desmayos o p??rdida del conocimiento ??? Frecuencia card??kelton acelerada ??? Convulsiones ?? Cu??ndo buscar atenci??n m??dica Llame a brock proveedor de atenci??n m??dica de inmediato ante cualquiera de las siguientes situaciones: ??? Dolor que empeora o pasa a la parte inferior derecha del abdomen ??? Episodios nuevos de v??mitos o diarrea, o que empeoran ??? Hinchaz??n del abdomen ??? Incapacidad de defecar por m??s de??3??d??as ??? Fiebre de 100.4?F??(38?C) o m??s geo, o seg??n se lo indique brock proveedor de atenci??n m??dica ??? Seth en los v??mitos o en las heces (de color velez oscuro o rose) ??? Color amarillento en los ojos y la piel (ictericia) ??? Debilidad, mareos ??? Dolor de pecho, en un brazo, la espalda, el devyn o la hailey??bula ??? V??mitos excesivos que impiden retener medicamentos, l??quidos o agua ??? Si tiene vagina: sangrado vaginal inesperado o ausencia del per??odo ?? Last Reviewed Date: 2021 ?? [id number] [employer]. Todos los derechos reservados. Esta informaci??n no pretende sustituir la atenci??n m??dica profesional. S??lo brock m??dico puede diagnosticar y tratar un problema de tom. ?? Patient Care team information Care Team Personnel Name: Wilberto CARUSO, Tracey Freeman Position: [facility] PCO Associate Professional Member Role: PCP Address: Address: [address] [place] [address]- Care Team Related Persons Name: NANY DUQUE Address: home [address] [place] [address] [place] [address]
--- OUTSIDE RECORDS SUMMARY | 2023-10-01 16:21 | XMS_ITS | Continuity of Care Document ---
Author Organization [facility] Address [address] [place] [address]- Care Team Providers Care Button Machine Operator Name Role Phone Not on Staff, PCP Primary Care Physician Unavail able Encounter [facility] Date(s): 03/26/23 - 04/25/23 [facility] [address]- Allergies, Adverse Reactions, Alerts No Known Allergies Medications albendazole 200 mg oral tablet 2 tablet = 400 mg, By Mouth, Once, # 2 tablet, 0 Refills, Soft Stop, 09/02/22 11:57:00 EDT, Tablet,[facility], Partial fill upon patient request if the prescription is for a schedule II opioid drug., 53.09, kg, 09/02/22 11:26:00 E... Start Date: 09/02/22 Status: Ordered cetirizine 10 mg oral tablet 1 tablet = 10 mg, By Mouth, Daily, PRN for allergy symptoms, # 30 tablet, 1 Refills, Maintenance, 09/02/22 11:59:00 EDT, Tablet, [facility], Partial fill upon patient request if the prescription is for a schedule II opioid drug., 5... Start Date: 09/02/22 Stop Date: 11/01/22 Status: Ordered ivermectin 3 mg oral tablet 4 tablet = 12 mg, By Mouth, Daily, # 8 tablet, 0 Refills, Maintenance, 09/02/22 11:57:00 EDT, [facility], Partial fill upon patient request if the prescription is for a schedule II opioid drug., 53.09, kg, 09/02/22 11:26:00 EDTDr... Start Date: 09/02/22 Stop Date: 09/04/22 Status: Ordered Lubricant Eye Drops ophthalmic solution 1 drops, Eyes, Both, 2 times a day, PRN for dry eyes, salvadorean, # 30 mL, 11 Refills, Maintenance, 12/01/22 19:04:00 EDT, Solution, [facility], Partial fill upon patient request if the prescription is for a schedule II opioid drug.,... Start Date: 12/01/22 Status: Ordered omeprazole 20 mg oral enteric coated capsule 1 capsule = 20 mg, By Mouth, 2 times a day, # 28 capsule, 0 Refills, Maintenance, 09/15/22 15:19:00EDT, EC Capsule, [facility], Partial fill upon patient request if [...] patch, 3 Refills, Maintenance, 12/01/22 19:02:00 EDT, [facility], Partial fill upon patient request if [...]
--- OUTSIDE RECORDS SUMMARY | 2023-10-01 16:21 | XMS_ITS | Continuity of Care Document ---
Author Organization [facility] Address [address] [place] [address]- Care Team Providers Care Tobacco Classer Name Role Phone Wilberto CARUSO, Tracey Freeman Primary Care Physici an [id number] Date(s): 07/05/23 - 08/04/23 [facility]/[address] [address]- Allergies, Adverse Reactions, Alerts No Known Allergies Medications cetirizine 10 mg oral tablet 1 tablet = 10 mg, By Mouth, Daily, PRN for allergy symptoms, # 30 tablet, 1 Refills, Maintenance, 09/02/22 11:59:00 EDT, Tablet, [facility], Partial fill upon patient request if the prescription is for a schedule II opioid drug., 5... Start Date: 09/02/22 Stop Date: 11/01/22 Status: Ordered Lubricant Eye Drops ophthalmic solution 1 drops, Eyes, Both, 2 times a day, PRN for dry eyes, northern irish, # 30 mL, 11 Refills, Maintenance, 12/01/22 19:04:00 EDT, Solution, [facility], Partial fill upon patient request if the prescription is for a schedule II opioid drug.,... Start Date: 12/01/22 Status: Ordered Multivitamins with Folic Acid 0.4 mg oral tablet 1 tablet, By Mouth, Daily, # 90 tablet, 3 Refills, Maintenance, 08/03/23 10:01:00 EDT, [facility], Partial fill upon patient request if [...] patch, 3 Refills, Maintenance, 12/01/22 19:02:00 EDT, [facility], Partial fill upon patient request if the prescription is for a sche... Start Date: 12/01/22 Status: Ordered Social History Social History Type Response Smoking Status Never (less than 100 in lifetime) entered on: 03/17/23 Sex Female Patient Care team information Care Team Personnel Name: Wilberto CARUSO, Tracey Freeman Position: [facility] PCO Associate Professional Member Role: PCP Address: Address: [address] [place] [address]- Care Team Related Persons Name: NANY DUQUE
--- OUTSIDE RECORDS SUMMARY | 2023-10-01 16:21 | XMS_ITS | Continuity of Care Document ---
Author Organization [facility] Address [address] [place] [address]- Care Team Providers Care Hospice Volunteer Name Role Phone Not on Staff, PCP Primary Care Physician Unavail able Encounter [facility] Date(s): 09/08/22 - 10/08/22 [facility]/[place] [address]- [place] Allergies, Adverse Reactions, Alerts No Known Allergies Medications albendazole 200 mg oral tablet 2 tablet = 400 mg, By Mouth, Once, # 2 tablet, 0 Refills, Soft Stop, 09/02/22 11:57:00 EDT, Tablet,[facility], Partial fill upon patient request if the prescription is for a schedule II opioid drug., 53.09, kg, 09/02/22 11:26:00 E... Start Date: 09/02/22 Status: Ordered cetirizine 10 mg oral tablet 1 tablet = 10 mg, By Mouth, Daily, PRN for allergy symptoms, # 30 tablet, 1 Refills, Maintenance, 09/02/22 11:59:00 EDT, Tablet, [facility], Partial fill upon patient request if the prescription is for a schedule II opioid drug., 5... Start Date: 09/02/22 Stop Date: 11/01/22 Status: Ordered ivermectin 3 mg oral tablet 4 tablet = 12 mg, By Mouth, Daily, # 8 tablet, 0 Refills, Maintenance, 09/02/22 11:57:00 EDT, [facility], Partial fill upon patient request if the prescription is for a schedule II opioid drug., 53.09, kg, 09/02/22 11:26:00 EDTDr... Start Date: 09/02/22 Stop Date: 09/04/22 Status: Ordered omeprazole 20 mg oral enteric coated capsule 1 capsule = 20 mg, By Mouth, 2 times a day, # 28 capsule, 0 Refills, Maintenance, 09/15/22 15:19:00EDT, EC Capsule, [facility], Partial fill upon patient request if the prescription is for a schedule II opioid drug., 53.09, kg, 05... Start Date: 09/15/22 Stop Date: 09/29/22 Status: Ordered Social History Social History Type Response Sex Female Patient Care team information Care Team Personnel Name: Not on Staff, PCP Position: S Physician (General Medicine) Member Role: PCP
--- OUTSIDE RECORDS SUMMARY | 2023-10-01 16:21 | XMS_ITS | Continuity of Care Document ---
Author Organization [facility] Address [address] [place] [address]- Care Team Providers Care Supervisor [place] Name Role Phone Wilberto CARUSO, Tracey Freeman Primary Care Physici an [id number] Date(s): 07/02/23 - 08/01/23 [facility]/[address] [address]- Attending Physician: Helene Hager Admitting Physician: Admtr, Ar8 Referring Physician: Admtr, Ar8 Allergies, Adverse Reactions, Alerts No Known Allergies Medications cetirizine 10 mg oral tablet 1 tablet = 10 mg, By Mouth, Daily, PRN for allergy symptoms, # 30 tablet, 1 Refills, Maintenance, 09/02/22 11:59:00 EDT, Tablet, [facility], Partial fill upon patient request if the prescription is for a schedule II opioid drug., 5... Start Date: 09/02/22 Stop Date: 11/01/22 Status: Ordered Lubricant Eye Drops ophthalmic solution 1 drops, Eyes, Both, 2 times a day, PRN for dry eyes, french, # 30 mL, 11 Refills, Maintenance, 12/01/22 19:04:00 EDT, Solution, [facility], Partial fill upon patient request if the prescription is for a schedule II opioid drug.,... Start Date: 12/01/22 Status: Ordered Xulane 150 mcg-35 mcg/24 hr transdermal film, extended release See Instructions, apply a new patch weekly for 3 weeks, remove for 1 week, then repeat cycle, # 9 patch, 3 Refills, Maintenance, 12/01/22 19:02:00 EDT, [facility], Partial fill upon patient request if the prescription is for a sche... Start Date: 12/01/22 Status: Ordered Social History Social History Type Response Smoking Status Never (less than 100 in lifetime) entered on: 03/17/23 Sex Female Patient Care team information Care Team Personnel Name: Wilberto CARUSO, Tracey Freeman Position: [facility] PCO Associate Professional Member Role: PCP Address: Address: [address] [place] [address] Care Team Related Persons Name: NANY DUQUE
--- OUTSIDE RECORDS SUMMARY | 2023-10-01 16:21 | XMS_ITS | Continuity of Care Document ---
Author Organization [facility] Address [address] [place] [address]- Care Team Providers Care Ensemble Member Name Role Phone Not on Staff, PCP Primary Care Physician Unavail able Encounter [facility] Date(s): 12/03/22 - 01/02/23 [facility]/[place] [address]- Attending Physician: Helene Hager Admitting Physician: Helene Hager Referring Physician: AdmtrHelene Allergies, Adverse Reactions, Alerts No Known Allergies Medications albendazole 200 mg oral tablet 2 tablet = 400 mg, By Mouth, Once, # 2 tablet, 0 Refills, Soft Stop, 09/02/22 11:57:00 EDT, Tablet,[facility], Partial fill upon patient request if the prescription is for a schedule II opioid drug., 53.09, kg, 09/02/22 11:26:00 E... Start Date: 09/02/22 Status: Ordered cetirizine 10 mg oral tablet 1 tablet = 10 mg, By Mouth, Daily, PRN for allergy symptoms, # 30 tablet, 1 Refills, Maintenance, 09/02/22 11:59:00 EDT, Tablet, [facility], Partial fill upon patient request if the prescription is for a schedule II opioid drug., 5... Start Date: 09/02/22 Stop Date: 11/01/22 Status: Ordered ivermectin 3 mg oral tablet 4 tablet = 12 mg, By Mouth, Daily, # 8 tablet, 0 Refills, Maintenance, 09/02/22 11:57:00 EDT, [facility], Partial fill upon patient request if the prescription is for a schedule II opioid drug., 53.09, kg, 09/02/22 11:26:00 EDT, Start Date: 09/02/22 Stop Date: 09/04/22 Status: Ordered Lubricant Eye Drops ophthalmic solution 1 drops, Eyes, Both, 2 times a day, PRN for dry eyes, latvian, # 30 mL, 11 Refills, Maintenance, 12/01/22 19:04:00 EDT, Solution, [facility], Partial fill upon patient request if the prescription is for a schedule II opioid drug.,... Start Date: 12/01/22 Status: Ordered omeprazole 20 mg oral enteric coated capsule 1 capsule = 20 mg, By Mouth, 2 times a day, # 28 capsule, 0 Refills, Maintenance, 09/15/22 15:19:00EDT, EC Capsule, [facility], Partial fill upon patient request if [...] patch, 3 Refills, Maintenance, 12/01/22 19:02:00 EDT, [facility], Partial fill upon patient request if the prescription is for a sche... Start Date: 12/01/22 Status: Ordered Social History Social History Type Response Sex Female Patient Care team information Care Team Personnel Name: Not on Staff, PCP Position: S Physician (General Medicine) Member Role: PCP Care Team Related Persons Name: NANY DUQUE
--- OUTSIDE RECORDS SUMMARY | 2023-10-01 16:21 | XMS_ITS | Continuity of Care Document ---
Author Organization [facility] Address [address] [place] [address]- Care Team Providers Care Malware Analyst Name Role Phone Not on Staff, PCP Primary Care Physician Unavail able Encounter [facility] Date(s): 03/17/23 - 04/16/23 [facility]/[place] [address]- Attending Physician: Helene Hager Admitting Physician: Helene Hager Referring Physician: AdmtrHelene Allergies, Adverse Reactions, Alerts No Known Allergies Medications albendazole 200 mg oral tablet 2 tablet = 400 mg, By Mouth, Once, # 2 tablet, 0 Refills, Soft Stop, 09/02/22 11:57:00 EDT, Tablet,[facility], Partial fill upon patient request if the prescription is for a schedule II opioid drug., 53.09, kg, 09/02/22 11:26:00 E... Start Date: 09/02/22 Status: Ordered cetirizine 10 mg oral tablet 1 tablet = 10 mg, By Mouth, Daily, PRN for allergy symptoms, # 30 tablet, 1 Refills, Maintenance, 09/02/22 11:59:00 EDT, Tablet, [facility], Partial fill upon patient request if the prescription is for a schedule II opioid drug., 5... Start Date: 09/02/22 Stop Date: 11/01/22 Status: Ordered ivermectin 3 mg oral tablet 4 tablet = 12 mg, By Mouth, Daily, # 8 tablet, 0 Refills, Maintenance, 09/02/22 11:57:00 EDT, [facility], Partial fill upon patient request if the prescription is for a schedule II opioid drug., 53.09, kg, 09/02/22 11:26:00 EDT, Dr... Start Date: 09/02/22 Stop Date: 09/04/22 Status: Ordered Lubricant Eye Drops ophthalmic solution 1 drops, Eyes, Both, 2 times a day, PRN for dry eyes, lao, # 30 mL, 11 Refills, Maintenance, 12/01/22 19:04:00 EDT, Solution, [facility], Partial fill upon patient request if the prescription is for a schedule II opioid drug.,... Start Date: 12/01/22 Status: Ordered omeprazole 20 mg oral enteric coated capsule 1 capsule = 20 mg, By Mouth, 2 times a day, # 28 capsule, 0 Refills, Maintenance, 09/15/22 15:19:00EDT, EC Capsule, [facility], Partial fill upon patient request if [...] patch, 3 Refills, Maintenance, 12/01/22 19:02:00 EDT, [facility], Partial fill upon patient request if [...]
--- OUTSIDE RECORDS SUMMARY | 2023-10-01 16:22 | XMS_ITS | Continuity of Care Document ---
Author Organization [facility] Address [address] [place] [address]- Care Team Providers Care Insurance Special Agent Name Role Phone Wilberto CARUSO, Tracey Freeman Primary Care Physici an [place] [facility] [place] 09/20/23 - 09/21/[address] [address]- Encounter Diagnosis Abdominal pain(Final) - 09/21/23 Discharge Disposition: A-D/C Home Attending Physician: Payton Gregg DO Admitting Physician: Payton Gregg DO Referring Physician: Not on Staff, Referring MD Allergies, Adverse Reactions, Alerts No Known Allergies Medications cetirizine 10 mg oral tablet 1 tablet = 10 mg, By Mouth, Daily, PRN for allergy symptoms, # 30 tablet, 1 Refills, Maintenance, 09/02/22 11:59:00 EDT, Tablet, [facility], Partial fill upon patient request if the prescription is for a schedule II opioid drug., 5... Start Date: 09/02/22 Stop Date: 11/01/22 Status: Ordered Lubricant Eye Drops ophthalmic solution 1 drops, Eyes, Both, 2 times a day, PRN for dry eyes, north korean, # 30 mL, 11 Refills, Maintenance, 12/01/22 19:04:00 EDT, Solution, [facility], Partial fill upon patient request if the prescription is for a schedule II opioid drug.,... Start Date: 12/01/22 Status: Ordered Multivitamins with Folic Acid 0.4 mg oral tablet 1 tablet, By Mouth, Daily, # 90 tablet, 3 Refills, Maintenance, 08/03/23 10:01:00 EDT, [facility], Partial fill upon patient request if the prescription is for a schedule II opioid drug., 1 tablet By Mouth Daily, 145.2, cm, ... Start Date: 08/03/23 Status: Ordered Vital Signs Most recent to oldest [Reference Range]: 1 2 3 Height 145 cm (09/21/23 4:51 AM) 145 cm (09/21/23 1:37 AM) 145 cm (09/20/23 8:52 PM) Weight 56 kg (09/21/23 4:51 AM) 56 kg (09/21/23 1:37 AM) 56 kg (09/20/23 8:52 PM) Oxygen Saturation [94-100 %] 99 % (09/21/23 7:50 AM) 100 % (09/21/23 4:51 AM) 100 % (09/21/23 3:30 AM) Pulse Rate [55-90 bpm] 84 bpm (09/21/23 7:50 AM) 87 bpm (09/21/23 4:51 AM) 52 bpm *L* (09/21/23 3:30 AM) Body Mass Index [18.5-24.99 kg/m2] 26.63 kg/m2 *H* (09/21/23 4:51 AM) 26.63 kg/m2 *H* (09/20/23 8:52 PM) Blood Pressure [90-138/55-84 mm Hg] 98/76mm Hg (09/21/23 7:50 AM) 99/60mm Hg (09/21/23 4:51 AM) 121/57mm Hg (09/21/23 3:30 AM) Respiratory Rate [16-30 br/min] 18 br/min (09/21/23 7:50 AM) 19 br/min (09/21/23 4:51 AM) 18 br/min (09/21/23 3:30 AM) Temperature [96.8-100.4 DegF] 98.1 DegF (09/21/23 7:50 AM) 97.6 DegF (09/21/23 1:37 AM) 98.6 DegF (09/20/23 8:52 PM) Mode of Delivery (Oxygen) Room air (09/21/23 7:50 AM) Room air (09/21/23 4:51 AM) Room air (09/21/23 3:30 AM) Blood pressure sites Arm, left (09/21/23 7:50 AM) Arm, left (09/21/23 4:51 AM) Arm, left (09/21/23 3:30 AM) Temperature Route Oral (09/21/23 7:50 AM) Oral (09/21/23 1:37 AM) Oral (09/20/23 8:52 PM) Dry Weight 56 kg (09/21/23 4:51 AM) 56 kg (09/21/23 1:37 AM) 56 kg (09/20/23 8:52 PM) Social History Social History Type Response Smoking Status Never (less than 100 in lifetime) entered on: 03/17/23 Sex Female Patient Care team information Care Team Personnel Name: Wilberto CARUSO, Tracey Freeman Position: [facility] PCO Associate Professional Member Role: PCP Address: Address: [address] [place] [id number]- Care Team Related Persons Name: NANY DUQUE Address: home [address] [place] [id number]
[2023-10-01 16:41] VITALS: BP 107/62; PULSE 58; RESP 18; TEMP 36.7; O2SAT 99
[2023-10-01] MEDS: Ketorolac Tromethamine 30 MG/ML VIAL IM (18:36)
[2023-10-01] MEDS: Doxycycline Monohydrate 100 MG CAPSULE PO (19:14)
[2023-10-01] MEDS: metroNIDAZOLE 500 MG TABLET PO (19:14)
[2023-10-01] MEDS: cefTRIAXone sodium 500 MG, Lidocaine HCl 1 % MPF 1 ML IM (19:15)
[2023-10-01 19:21] VITALS: BP 130/84; PULSE 62; RESP 16; TEMP 36.7; O2SAT 100
[2023-10-01 22:07] VITALS: BP 117/66; PULSE 59; RESP 16; TEMP 36.8; O2SAT 98
[2023-10-02 03:04] LABS: CT PCR NOT DETECTED (Not Detect.); NG PCR NOT DETECTED (Not Detect.)
[2023-10-02 11:06] LABS: Bacterial Vaginosis PCR NEGATIVE (Negative); Candida Group PCR NOT DETECTED (Not Detect); Candida glab krusei PCR NOT DETECTED (Not Detect); Trichomonas vaginalis PCR NOT DETECTED (Not Detect)
== END 2023-10-01 22:10 | disposition home or self-care (01) ==
PROVIDERS: Nurse Practitioner Family; Physician Assistant Medical; Emergency Provider Internal Medicine
DX: D25.9 Leiomyoma of uterus, unspecified (principal); N92.6 Irregular menstruation, unspecified; R42 Dizziness and giddiness; R10.33 Periumbilical pain; R10.2 Pelvic and perineal pain; N88.8 Other specified noninflammatory disorders of cervix uteri; R00.1 Bradycardia, unspecified; Z79.899 Other long term (current) drug therapy; Z20.2 Contact with and (suspected) exposure to infections with a predominantly sexual mode of transmission
CPT/HCPCS: 0352U; 0353U; 36415; 76830; 76856; 80053; 81001; 81025; 85025; 87086; 93005; 96372; 99284; J0696; J1885

== ENCOUNTER → 2023-10-01 12:41 | Outpatient (BNV) | payer MEDICAID, SELFPAY | PROVIDERS: Visit Provider Internal Medicine | DX: R00.1 Bradycardia, unspecified (principal) | CPT/HCPCS: 93010 ==

== ENCOUNTER 2023-10-04 08:30 | Emergency (ER) | payer MEDICAID, OTHER, SELFPAY | END 2023-10-04 11:52 | disposition left against medical advice (07) | PROVIDERS: Emergency Provider Emergency Medicine | DX: R51.9 Headache, unspecified (principal) ==

== ENCOUNTER 2023-12-20 12:25 | Emergency (ER) | payer MEDICAID, OTHER, SELFPAY ==
--- NOTE | ~2023-12-20 | US_ITS ---
EXAMINATION: US PELVIS CLINICAL INFORMATION: Right-sided pelvic pain COMPARISON: Pelvic ultrasound September 2023 TECHNIQUE: Ultrasound of the pelvis is performed using both transabdominal and transvaginal transducers along with Doppler. Transvaginal imaging is performed due to inadequate visualization transabdominally. FINDINGS: Uterus: The uterus is anteverted and measures 9 x 4.4 x 5 cm. endometrial thickness is 1.2 mm. The uterus is smooth in contour and has normal myometrial echogenicity. No visible fibroid. Adnexa: Both ovaries are visualized. There is prominent vascularity surrounding the left adnexal region. Similar findings in the region previously bilaterally... There is no ovarian torsion. There is no pelvic ascites or fluid collection. Right ovary measures 4.9 x 2.4 x 3.9 cm with a volume of 24 mL. Cyst measures 2 cm compatible with corpus luteal cyst. Left ovary measures 3.3 x 1.6 x 1.8 cm with a volume of 5 mL. No mass seen. US/US pelvic and transvaginal IMPRESSION: 1. No evidence of ovarian torsion. Prominent vascularity surrounding the left adnexal region. This can be associated with pelvic congestion syndrome in some patients. Similar findings noted bilaterally in the prior exam. Electronically signed by: Bernard Brody MD 12/20/2023 02:35 PM EDT
[2023-12-20 12:41] VITALS: BP 120/73; PULSE 67; RESP 16; TEMP 36.6; O2SAT 99; BMI 27.7
--- NOTE | 2023-12-20 12:45 | ED_ITS ---
HPI - General Adult General Chief complaint: General Medical Stated complaint: Ovarian pain due to cysts? Time Seen by Provider: 12/20/23 15:18 Source: patient Mode of arrival: ambulatory Limitations: no limitations History of Present Illness ED Provider: CHANTELL JOHNSON PA-C HPI narrative: 33 year old [place] Island[place] speaking female, , presents to the ED today requesting pelvic ultrasound. Patient reports being evaluated for pelvic pain at [facility] 3 mos ago. She was noted to have a right ovarian cyst and associated pelvic congestion. She was discharged and advised to follow up with PCP/ OBGYN. She states she has since follow up with her doctor who told her she needed a repeat ultrasound however did not tell the patient where this needed to be done. Patient reports 1/10 right sided pelvic pain, chronic in nature and unchanged since last visit. Denies chance of . Last menstrual period on 12/12/23. Denies fever, chills, N/V, dysuria, hematuria, vaginal discharge or bleeding. Related Data Previous Rx's ?Medication ?Instructions ?Recorded doxycycline monohydrate 100 mg 100 mg PO BID 7 days #13 caps 10/01/23 capsule metronidazole 500 mg tablet 500 mg PO BID 7 days #13 tabs 10/01/23 naproxen 500 mg tablet 500 mg PO Q8-12H PRN pain (scale 10/01/23 score 4-6) #20 tabs Allergies Allergy/AdvReac Type Severity Reaction Status Date / Time No Known Allergies Allergy Verified 12/20/23 12:44 Review of Systems Review of Systems: Constitutional: No fever, chills, fatigue, night sweats, weight changes ENT/Mouth: No ear pain, hearing loss, nasal congestion, sinus pain, rhinorrhea, sore throat Eyes: No eye pain, swelling, redness, vision changes, discharge Cardio: No chest pain, palpitations, ROMERO, orthopnea, peripheral edema Pulm: No SOB, cough, sputum, wheezing, dyspnea, hemoptysis GI: No nausea, vomiting, hematemesis, abdominal pain, diarrhea, constipation, hematochezia, melena : No irregular bleeding, dysuria, frequency, urgency, hesitancy, hematuria, flank pain, urinary flow changes, urinary incontinence or retention MSK: No back pain, neck pain, joint pain, myalgias Skin: No lesions, rashes Neuro: No weakness, numbness, paresthesias, LOC, dizziness, headache Psych: No anxiety/panic, depression, SI/HI, AH/VH All other systems reviewed and are negative. [facility] Past Medical History Attestation statement: The following information was validated with the patient. Source: old records reviewed and nursing notes reviewed Social History Social History Alcohol intake: never Advance Directives: No Advance Directives Information Provided: No Do you have a plan to hurt others: No Plan Physical Exam ED Vital Signs: Vital Signs - 24 hr 12/20/23 12:41 12/20/23 16:53 Temperature 97.9 F 98.0 F Pulse Rate 67 66 Respiratory Rate 16 16 Blood Pressure 120/73 121/76 Pulse Oximetry 99 99 Oxygen Delivery Method Room Air Room Air BMI result Body Mass Index 27.7 Vital signs stable, afebrile General: Well appearing, in no acute distress. Skin: Warm, dry, intact. No rashes or lesions. Head: Normocephalic, atraumatic. Cardiac: Chest wall symmetric. RRR. No MRG. No JVD. Lungs: Normal respiratory effort without accessory muscle use Abdomen: Soft, non-tender, non-distended. No rebound tenderness or guarding. Positive BS x4. Back: No CVAT Ext: Upper and lower extremities atraumatic, without tenderness, deformity, swelling or erythema. Full ROM throughout. Neuro: AOx3. Normal speech. Ambulating with steady gait. Psych: Appropriate mood and affect. Responds appropriately to questions. Course Course Course Narrative: This is a Rapid Medical Examination (RME) performed by Chino Johnson PA-C in triage. Full HPI, ROS, assessment and treatment plan per primary provider in the Main ED. 33-year-old female with no significant past medical history here requesting pelvic ultrasound she was told by PCP that she needed a follow-up ultrasound for ovarian cyst however her PCP did not she needed to come to the ED. patient evaluated in the ED 3 months ago for pelvic pain, ultrasound showed right ovarian hemorrhagic cyst for which no imaging follow-up was recommended. There was also prominent bilateral adnexal vasculature possibly associated with pelvic congestion. She followed up with PCP he was requesting repeat ultrasound. Reports mild right-sided pelvic pain. + well appearing Plan: ultrasound Reevaluation(s) Reevaluation #1: 1521 -- patient declining test at this time as she is not sexually active. Pelvic/transvaginal ultrasound showing right ovary measuring 4.9 x 2.4 x 3.9 cm with a volume of 24 mL, cyst measuring 2 mm compatible with corpus luteal cyst. Left ovary unremarkable. There is prominent vascularity surrounding the left adnexal region, possibly associated with pelvic congestion syndrome which was demonstrated on previous ultrasound obtained on 10/01/2023. There is no evidence of IUP or ectopic. No demonstrated adnexal masses. > workup unremarkable. I did discuss ultrasound findings with patient. Provided her with ultrasound read. Advised to follow up with PCP and or OBGYN. Patient has remained stable throughout ED visit today. Discussed worrisome signs and symptoms and when to return to the ED. All questions answered at this time. Patient is agreeable with disposition and stable for discharge. Medical Decision Making Medical Decision Making MDM Narrative: 33 year old [place] speaking female, , presents to the ED today requesting pelvic ultrasound. Vital signs stable. Afebrile. Abdomen is soft, nondistended, nontender to palpation, no rebound tenderness or guarding. No CVAT bilaterally. Pelvic exam deferred per patient. This female patient presents with lateralized pelvic pain, concerning for?ovarian cyst, pelvic congestion syndrome. Differential diagnosis includes includes TOA, PID, and other infectious causes but less likely as patient has no constitutional symptoms of infection. Ectopic is on the differential but unlikely. Also includes IUP, UTI, pyelo, endometriosis, adenomyosis but these are less likely. Doubt appendicitis or other primary gastrointestinal process. Plan: I offered urine test however patient is declining. Will obtain pelvic/ TV ultrasound. Differential Diagnosis Differential Diagnoses: The differential diagnosis associated with the presentation includes As above Admission/Observation not indicated. Independent Interpretation I performed an independent interpretation of an: Ultrasound Interpretation: Pelvic/ TV ultrasound showing right ovarian cyst, agree with radiologist's interpretation. Radiology Impression Discussion of test interpretation with radiology: I have reviewed the radiologist's reading. Radiologist Impression: EXAMINATION: US PELVIS CLINICAL INFORMATION: Right-sided pelvic pain COMPARISON: Pelvic ultrasound September 2023 TECHNIQUE: Ultrasound of the pelvis is performed using both transabdominal and transvaginal transducers along with Doppler. Transvaginal imaging is performed due to inadequate visualization transabdominally. FINDINGS: Uterus: The uterus is anteverted and measures 9 x 4.4 x 5 cm. endometrial thickness is 1.2 mm. The uterus is smooth in contour and has normal myometrial echogenicity. No visible fibroid. Adnexa: Both ovaries are visualized. There is prominent vascularity surrounding the left adnexal region. Similar findings in the region previously bilaterally... There is no ovarian torsion. There is no pelvic ascites or fluid collection. Right ovary measures 4.9 x 2.4 x 3.9 cm with a volume of 24 mL. Cyst measures 2 cm compatible with corpus luteal cyst. Left ovary measures 3.3 x 1.6 x 1.8 cm with a volume of 5 mL. No mass seen. US/US pelvic and transvaginal IMPRESSION: 1. No evidence of ovarian torsion. Prominent vascularity surrounding the left adnexal region. This can be associated with pelvic congestion syndrome in some patients. Similar findings noted bilaterally in the prior exam. Electronically signed by: Bernard Brody MD 12/20/2023 02:35 PM EDT External Record Review External record reviewed: Inpatient record Prescription Management I considered prescription management with: Pain Medication Social Determinants Patient?s care significantly limited by Social Determinants of Health including: Other Social Determinant of Health Critical Care Time Critical Care Time Critical Care Time: No Discharge Plan Discharge Clinical Impression: Pelvic pain Patient Disposition: Home, Self-Care Instructions: Pelvic Pain in Women (ED), Heat Pack Application (ED), Pelvic Pain (ED), Warm Compress or Soak (ED) Additional Instructions: Your pelvic ultrasound shows: Uterus: The uterus is anteverted and measures 9 x 4.4 x 5 cm. endometrial thickness is 1.2 mm. The uterus is smooth in contour and has normal myometrial echogenicity. No visible fibroid. Adnexa: Both ovaries are visualized. There is prominent vascularity surrounding the left adnexal region. Similar findings in the region previously bilaterally... There is no ovarian torsion. There is no pelvic ascites or fluid collection. Right ovary measures 4.9 x 2.4 x 3.9 cm with a volume of 24 mL. Cyst measures 2 cm compatible with corpus luteal cyst. Left ovary measures 3.3 x 1.6 x 1.8 cm with a volume of 5 mL. No mass seen. US/US pelvic and transvaginal IMPRESSION: 1. No evidence of ovarian torsion. Prominent vascularity surrounding the left adnexal region. This can be associated with pelvic congestion syndrome in some patients. Similar findings noted bilaterally in the prior exam. You may take tylenol or motrin at home as needed for pain/ discomfort. Follow up with OBGYN as scheduled. Return with new or worsening symtoms. In the case of an emergency call 911. Prescriptions: No Action naproxen 500 mg tablet 500 mg PO Q8-12H PRN (Reason: pain (scale score 4-6)) Qty: 20 0RF doxycycline monohydrate 100 mg capsule 100 mg PO BID 7 Days Qty: 13 0RF metronidazole 500 mg tablet 500 mg PO BID 7 Days Qty: 13 0RF Referrals: [facility] [Provider Group] Interventions: ED Discharge Assessment Last Done: 12/20/23 16:53 Discharge Date/Time: 12/20/23 16:53 Print Language: [place]
[2023-12-20 16:53] VITALS: BP 121/76; PULSE 66; RESP 16; TEMP 36.7; O2SAT 99
== END 2023-12-20 16:53 | disposition home or self-care (01) ==
PROVIDERS: Emergency Provider Emergency Medicine
DX: R10.2 Pelvic and perineal pain (principal)
CPT/HCPCS: 76830; 76856; 99282; 99284

== ENCOUNTER 2024-02-18 10:20 | Emergency (ER) | payer MEDICAID, OTHER, SELFPAY ==
--- NOTE | ~2024-02-18 | US_ITS ---
EXAMINATION: US PELVIS CLINICAL INFORMATION: Pelvic pain. LMP 02/08/2024. COMPARISON: [Recent pelvic ultrasound dated 12/20/2023. TECHNIQUE: Ultrasound of the pelvis is performed using both transabdominal and transvaginal transducers along with Doppler. Transvaginal imaging is performed due to inadequate visualization transabdominally. FINDINGS: Uterus: The uterus is anteverted and measures 8.1 x 4.3 x 4.6 cm. The double wall endometrial thickness is 1.0 mm. The uterus is smooth in contour and has normal myometrial echogenicity. No visible fibroid. Adnexa: Both ovaries are visualized. There is normal color flow to the adnexa. There is no ovarian torsion. There is no pelvic ascites or fluid collection. Right ovary measures 4.3 x 2.1 x 2.2 cm. Volume of 10.3 mL. Left ovary measures 4.2 x 1.9 x 2.7 cm. Volume of 11.2 mL. US/US pelvic and transvaginal IMPRESSION: Unremarkable examination. Electronically signed by: Issac Artis MD 02/18/2024 03:12 PM EDT
[2024-02-18 10:23] VITALS: BP 102/73; PULSE 72; RESP 18; TEMP 37; O2SAT 99; BMI 19.9
--- NOTE | 2024-02-18 11:15 | ED_ITS ---
HPI - General Adult General Chief complaint: Abdominal Pain Stated complaint: pain, preg+ Time Seen by Provider: 02/18/24 11:08 Source: patient and nurse assessor (all interactions with this patient were facilitated with an [facility] wood machinist) Mode of arrival: ambulatory Limitations: language barrier (all interactions with this patient were facilitated with an [facility] wood machinist) History of Present Illness ED Provider: Tara Russo PA-C HPI narrative: Patient is a 33 year old assigned female at with no reported medical history presenting to the emergency department today with lower abdominal pain and vaginal pain. Patient states that she has been having lower abdominal pain for 10 months and lower vaginal pain. Patient states that she has a lesion in her lower vagina that she doesn't know what it is. Patient denies any dizziness, lightheadedness, nausea, vomiting, fever, chills, blurry vision, double vision, loss of vision, chest pain, difficulty breathing, shortness of breath, back pain, night sweats, pain with urination, increased urinary frequency, increased urinary urgency, blood in her urine or stool, syncope or a near syncopal episode, recent trauma or falls, bowel incontinence, bladder incontinence, or any other complaints at this time. Onset (ago): month(s) (10) Relieving factors: none Exacerbating factors: none Associated symptoms: denies other symptoms Treatments prior to arrival: none Related Data Previous Rx's ?Medication ?Instructions ?Recorded doxycycline monohydrate 100 mg 100 mg PO BID 7 days #13 caps 10/01/23 capsule metronidazole 500 mg tablet 500 mg PO BID 7 days #13 tabs 10/01/23 naproxen 500 mg tablet 500 mg PO Q8-12H PRN pain (scale 10/01/23 score 4-6) #20 tabs Allergies Allergy/AdvReac Type Severity Reaction Status Date / Time No Known Allergies Allergy Verified 02/18/24 10:26 Review of Systems 2 Constitutional: Constitutional: Reports no additional constitutional complaints, Denies chills, Denies fever(s) and Denies night sweats Eyes: Eyes: Reports no additional eye complaints, Denies blurry vision, Denies change in vision, Denies diplopia, Denies eye discharge, Denies loss of vision and Denies eye pain ENT: Denies dizziness Cardiovascular: Cardiovascular: Reports no additional cardiovascular complaints, Denies chest pain, Denies lightheadedness, Denies Loss of Consciousness and Denies dyspnea Respiratory: Respiratory: Reports no additional respiratory complaints and Denies dyspnea Gastrointestinal: Gastrointestinal: Reports no additional gastrointestinal complaints, Reports abdominal pain, Denies melena, Denies hematochezia, Denies change in bowel habits and Denies change in stool character Genitourinary: Genitourinary: Denies hematuria, Denies urinary frequency, Denies dysuria, Denies urinary incontinence, Denies urinary hesitancy and Denies urinary urgency Comments: vaginal lesion Musculoskeletal: Musculoskeletal: Reports no additional musculoskeletal complaints, Denies numbness and Denies tingling Neurologic: Denies dizziness, Denies loss of vision, Denies numbness and Denies tingling Psychiatric: Psychiatric: Reports no additional psychiatric complaints Endocrine: Endocrine: Reports no additional endocrine complaints Hematologic/Lymphatic: Hematologic/Lymphatic: Reports no additional hematologic/lymphatic complaints Allergic/Immunologic: Allergic/Immunologic: Reports no additional allergic/immunologic complaints PMFSH Past Medical History Attestation statement: The following information was validated with the patient. Source: old records reviewed and nursing notes reviewed Social History Social History Alcohol intake: never Advance Directives: No Advance Directives Information Provided: Yes Do you have a plan to hurt others: No Plan Physical Exam ED Vital Signs: Vital Signs - 24 hr 02/18/24 10:23 02/18/24 12:00 02/18/24 13:48 Temperature 98.6 F 97.2 F 97.2 F Pulse Rate 72 62 62 Respiratory Rate 18 16 16 Blood Pressure 102/73 98/66 98/66 Pulse Oximetry 99 99 99 Oxygen Delivery Method Room Air Room Air BMI result Body Mass Index 19.9 Const General: cooperative, no acute distress, alert and awake Nutritional Appearance: well nourished Orientation/consciousness: patient oriented x3 Limitations: no limitations HENMT Head: Yes normal to inspection and Yes atraumatic Ears: hearing grossly normal bilaterally and external ears normal General nose exam: Normal external nose present, no nasal discharge noted and no epistaxis Face and sinus: Yes normal facial exam, No abrasion and No laceration Mouth: Normal oral and palatal mucosa present, no drooling and no muffled voice Eyes General: appearance normal, both eyes and all related structures Periorbital: periorbital findings normal Eyelids: Yes eyelids normal Conjunctivae: conjunctivae normal Pupils: Equal, round and reactive pupils present EOM: EOMs intact bilaterally Neck Neck: Yes normal visual inspection, Yes full ROM and Yes no lymphadenopathy Chest Chest palpation & inspection: normal inspection of the chest Resp Effort & Inspection: normal respiratory effort and able to speak in complete sentences GI Inspection: Yes normal to inspection Other: Exam occurred with dramatic reader in the room External Female Exam: other (lesion to the inner labia at the 8 o'clock position - unidentifiable) Neuro General: patient oriented x3 and moves all extremities Cranial nerves: Yes Equal, round and reactive pupils present Cognition (Neuro): normal cognition Extrem General: Yes normal to inspection, Yes full ROM and Yes capillary refill normal Psych Appearance: grossly normal Mental Status: mental status grossly normal Affect: normal affect Attitude: cooperative Thought process: Normal thought process present Thought content: Normal thought content present Insight: Good insight present (Psych) Medical Decision Making Medical Decision Making MDM Narrative: Patient is a 33 year old assigned female at with no reported medical history presenting to the emergency department today with pelvic pain and a vaginal lesion. Patient's physical exam was as noted in the physical exam portion of this note. Patient's blood work was unremarkable. Patient's urine showed no acute process. Patient's pelvic / transvaginal US showed no acute process. I explained my physical exam findings as well as all test results to the patient. I answered all questions asked by the patient. I stressed the importance of the patient taking her medication as directed (either prescribed or as the over the counter packaging recommends). I stressed the importance of the patient following up with her primary care provider and an OBGYN. I stressed the importance of the patient returning to the emergency department immediately if her symptoms were to worsen or if she were to develop any dizziness, shortness of breath, difficulty breathing, chest pain, blurry vision, loss of vision, nausea, vomiting, abdominal pain, fever, chills, back pain, or any other complaints. Patient verbalized agreement and understanding with this treatment plan and discharge. Differential Diagnosis Differential Diagnoses: The differential diagnosis associated with the presentation includes Vaginal lesion Pelvic pain UTI Admission/Observation Consideration of admission/observation: Escalation of care including admission/observation considered Patient would have been admitted to the hospital had her work up had any findings where hospital admission was appropriate and her clinical presentation warranted hospital admission. Lab Data [facility] Lab Attestation statement: I reviewed the patient's lab results. My interpretation of these results are in the [facility] Rationale portion of this note. 02/18/24 11:28 02/18/24 11:28 Labs: Lab Results 02/18/24 02/18/24 02/18/24 Range/Units 11:28 11:31 11:57 WBC 7.7 (4.8-10.8) X10*3/uL RBC 4.48 (4.20-5.50) X10*6/uL Hgb 12.9 (12.0-16.0) g/dl Hct 38.2 (37.0-47.0) % MCV 85.3 (80.0-98.0) fL MCH 28.8 (27.0-33.0) pg MCHC 33.8 (31.0-35.0) g/dl RDW 12.7 (11.0-16.0) % Plt Count 282 (160-400) X10*3/uL MPV 9.7 (9.4-12.3) fL Immature Gran % (Auto) 0.3 (0.0-0.4) % Neut % (Auto) 62.5 (45-73) % Lymph % (Auto) 27.4 (20-40) % Preston % (Auto) 7.2 (2-11) % Eos % (Auto) 2.3 (0-4) % Baso % (Auto) 0.3 (0-2) % Lymph # (Auto) 2.1 (1.2-4.9) X10*3/uL Preston # (Auto) 0.6 (0.1-1.2) X10*3/uL Eos # (Auto) 0.2 (0.0-0.4) X10*3/uL Baso # (Auto) 0.0 (0.0-0.2) X10*3/uL Abs Immat Gran (auto) 0.02 (0.00-0.03) X10*3/uL Absolute Neuts (auto) 4.8 (2.0-8.3) x10*3/uL Absolute Nucleated RBC 0.000 (0.0-0.012) X10*3/uL Nucleated RBC % (auto) 0.0 (0.0-0.2) /100WBC Sodium 139 (135-145) mmol/L Potassium 3.9 (3.3-5.1) mmol/L Chloride 108 (96-108) mmol/L Carbon Dioxide 27 (22-29) mmol/L Anion Gap 8 L (12-20) BUN 11 (9-16) mg/dL Creatinine 0.64 (0.5-1.4) mg/dL Estim Creat Clear Calc 99.3 Estimated GFR > 60 Random Glucose 89 (60-115) mg/dL Calcium 9.7 (8.4-10.2) mg/dL Magnesium 2.0 (1.6-2.6) mg/dL Total Bilirubin 0.3 (0.0-1.0) mg/dL AST 21 (5-31) U/L ALT 22 (0-31) U/L Alkaline Phosphatase 64 (39-117) U/L Total Protein 7.3 (6.5-8.0) g/dL Albumin 4.0 (3.5-5.0) g/dL Beta HCG, Quant < 2 mIU/mL Urine Color Yellow Urine Appearance Clear Urine pH 7.5 (5.0-9.0) Ur Specific [place] 1.010 (1.005-1.025) Urine Protein Negative (Neg-Trace) mg/dL Urine Glucose (UA) Negative (Negative) mg/dL Urine Ketones Negative (Negative) mg/dL Urine Blood Negative (Negative) Urine Nitrite Negative (Negative) Ur Leukocyte Esterase Moderate (2+) H (Negative) Urine RBC 3-5 H (0-2) /HPF Urine WBC 0-5 (0-5) /HPF Ur Squamous Epith Cells 0-2 (0-2) /HPF Urine Bacteria None Seen (None Seen) Hyaline Casts 0-2 (0-2) /LPF Chlam trachomat DNA PCR NOT DETECTED (Not Detect.) Influenza Type A (PCR) Cancelled Influenza Type B (PCR) Cancelled N.gonorrhoeae DNA (PCR) NOT DETECTED (Not Detect.) RSV RNA Qual (PCR) Cancelled SARS-CoV-2 RNA (RT-PCR) Cancelled T. vaginalis (PCR) NOT DETECTED (Not Detect) Bact Vaginosis (PCR) NEGATIVE (Negative) C. krusei/glabrata (PCR) NOT DETECTED (Not Detect) Christa group (PCR) NOT DETECTED (Not Detect) Independent Interpretation I performed an independent interpretation of an: Ultrasound Interpretation: My interpretation is in agreement with the radiologist's impression of this imaging study. L EXAMINATION: US PELVIS CLINICAL INFORMATION: Pelvic pain. LMP 02/08/2024. COMPARISON: [Recent pelvic ultrasound dated 12/20/2023. TECHNIQUE: Ultrasound of the pelvis is performed using both transabdominal and transvaginal transducers along with Doppler. Transvaginal imaging is performed due to inadequate visualization transabdominally. FINDINGS: Uterus: The uterus is anteverted and measures 8.1 x 4.3 x 4.6 cm. The double wall endometrial thickness is 1.0 mm. The uterus is smooth in contour and has normal myometrial echogenicity. No visible fibroid. Adnexa: Both ovaries are visualized. There is normal color flow to the adnexa. There is no ovarian torsion. There is no pelvic ascites or fluid collection. Right ovary measures 4.3 x 2.1 x 2.2 cm. Volume of 10.3 mL. Left ovary measures 4.2 x 1.9 x 2.7 cm. Volume of 11.2 mL. US/US pelvic and transvaginal IMPRESSION: Unremarkable examination. Electronically signed by: Issac Artis MD 02/18/2024 03:12 PM EDT RP Dictated By: Issac Artis MD Signed By: Electronically signed by Issac Artis MD 02/18/24 1512 Radiology Impression Discussion of test interpretation with radiology: I have reviewed the radiologist's reading. Discharge Plan Discharge Clinical Impression: Vaginal lesion, Pelvic pain Patient Disposition: Home, Self-Care Instructions: Pelvic Pain (ED) Additional Instructions: Follow up with your primary care provider and an OBGYN. Your ultrasound did not show anything emergent. You have an unclear external vaginal lesion / irritation. Return to the emergency department immediately if your symptoms worsen or if you develop any dizziness, shortness of breath, difficulty breathing, chest pain, blurry vision, loss of vision, nausea, vomiting, abdominal pain, fever, chills, back pain, or any other complaints. Consulta a tu m?dico de cabecera y a un ginec?logo. La ecograf?a no godfrey mostrado nada urgente. Tiene bonny lesi?n / irritaci?n vaginal externa poco nancy. Vuelva al servicio de urgencias inmediatamente si brain s?ntomas empeoran o si presenta mareos, falta de aliento, dificultad para respirar, dolor tor?cico, visi?n borrosa, p?rdida de visi?n, n?useas, v?mitos, dolor abdominal, fiebre, escalofr?os, dolor de espalda o cualquier otra molestia. Prescriptions: No Action naproxen 500 mg tablet 500 mg PO Q8-12H PRN (Reason: pain (scale score 4-6)) Qty: 20 0RF doxycycline monohydrate 100 mg capsule 100 mg PO BID 7 Days Qty: 13 0RF metronidazole 500 mg tablet 500 mg PO BID 7 Days Qty: 13 0RF Referrals: [facility] [Primary Care Provider] - Jaya Watts MD [Physician] - (Call to establish and follow up with an paid search specialist. Llame para establecer y realizar un seguimiento con un especialista en obstetricia.) Interventions: ED Discharge Assessment Last Done: 02/18/24 13:48 Discharge Date/Time: 02/18/24 13:49 Print Language: Azeri
[2024-02-18 11:36] LABS: MANUAL DIFF FLAG NO
[2024-02-18 11:40] LABS: Appearance Urine Clear; Color Urine Yellow; Glucose Urine UA Negative (Negative); Leukocyte Esterase Urine Moderate (2+) (Negative); Nitrite Urine Negative (Negative); PH 7.5 (5.0-9.0); UMIC TRIGGER UACC YES; Urine Blood Negative (Negative); Urine Ketones Negative (Negative); Urine Protein Negative (Neg-Trace)
[2024-02-18 11:40] LABS: Basophils Percent Auto 0.3 % (0-2); Eosinophils Absolute Auto 0.2 X10*3/uL (0.0-0.4); Eosinophils Percent Auto 2.3 % (0-4); Hematocrit 38.2 % (37.0-47.0); Hemoglobin 12.9 g/dl (12.0-16.0); Imm Gran Abs Auto 0.02 X10*3/uL (0.00-0.03); Imm Gran Pct Auto 0.3 % (0.0-0.4); Lymphocytes Absolute Auto 2.1 X10*3/uL (1.2-4.9); Lymphocytes Percent Auto 27.4 % (20-40); Mean Corpuscular HGB Conc 33.8 g/dl (31.0-35.0); Mean Corpuscular Hemoglobin 28.8 pg (27.0-33.0); Mean Corpuscular Volume 85.3 fL (80.0-98.0); Mean Platelet Volume 9.7 fL (9.4-12.3); Monocytes Absolute Auto 0.6 X10*3/uL (0.1-1.2); Monocytes Percent Auto 7.2 % (2-11); Neutrophils Absolute Auto 4.8 x10*3/uL (2.0-8.3); Neutrophils Percent Auto 62.5 % (45-73); Platelet Count 282 X10*3/uL (160-400); Red Blood Count 4.48 X10*6/uL (4.20-5.50); Red Cell Distribution Width 12.7 % (11.0-16.0); White Blood Count 7.7 X10*3/uL (4.8-10.8)
--- NOTE | 2024-02-18 11:42 | MHC.EDTECH ---
Cancel Sars/Flu/RSV per provider.
[2024-02-18 11:47] LABS: Bacteria Urine None Seen (None Seen); Hyaline Casts Urine 0-2 /LPF (0-2); Squamous Epithelial Cell Urine 0-2 /HPF (0-2); WBC Urine 0-5 /HPF (0-5)
[2024-02-18 12:00] VITALS: BP 98/66; PULSE 62; RESP 16; TEMP 36.2; O2SAT 99
[2024-02-18 12:06] LABS: Alanine Aminotransferase 22 U/L (0-31); Alkaline Phosphatase 64 U/L (39-117); Anion Gap 8 (12-20); Aspartate Amino Transferase 21 U/L (5-31); Bilirubin Total 0.3 mg/dL (0.0-1.0); Blood Urea Nitrogen 11 mg/dL (9-16); Calcium 9.7 mg/dL (8.4-10.2); Carbon Dioxide 27 mmol/L (22-29); Chloride 108 mmol/L (96-108); Creatinine Clr Calc Pharmacy 99.3; Estimated Glomerular Filt Rate > 60; Glucose Random 89 mg/dL (60-115); HCG Quantitative < 2 mIU/mL; Potassium 3.9 mmol/L (3.3-5.1); Sodium 139 mmol/L (135-145); Total Protein 7.3 g/dL (6.5-8.0)
[2024-02-18 13:06] LABS: Bacterial Vaginosis PCR NEGATIVE (Negative); Candida Group PCR NOT DETECTED (Not Detect); Candida glab krusei PCR NOT DETECTED (Not Detect); Trichomonas vaginalis PCR NOT DETECTED (Not Detect)
[2024-02-18 13:37] LABS: CT PCR NOT DETECTED (Not Detect.); NG PCR NOT DETECTED (Not Detect.)
[2024-02-18 13:48] VITALS: BP 98/66; PULSE 62; RESP 16; TEMP 36.2; O2SAT 99
== END 2024-02-18 13:49 | disposition home or self-care (01) ==
PROVIDERS: Physician Assistant Medical; Emergency Provider Emergency Medicine Emergency Medical Services
DX: N89.8 Other specified noninflammatory disorders of vagina (principal); R10.30 Lower abdominal pain, unspecified; R10.2 Pelvic and perineal pain; Z79.899 Other long term (current) drug therapy
CPT/HCPCS: 0352U; 36415; 76830; 76856; 80053; 81001; 83735; 84702; 85025; 87491; 87591; 99283; 99284